=== PATIENT | male | born 1955 | race Caucasian/White ===

== ENCOUNTER 2016-05-04 | Outpatient (CLI) | payer OTHER | END 2016-05-04 11:08 | disposition EMS.NT | DX: R07.9 Chest pain, unspecified (principal) ==

== ENCOUNTER 2016-10-08 00:54 | Outpatient (CLI) | payer OTHER | END 2016-10-08 00:55 | disposition critical access hospital (66) | LOC: EMS 00:54 | PROVIDERS: ATTEND Surgery | DX: R07.9 Chest pain, unspecified (principal) | CPT/HCPCS: A0425; A0427 ==

== ENCOUNTER 2016-10-08 01:35 | Emergency (ER) | payer OTHER ==
[2016-10-08] MEDS ORDERED: ASPIRIN CHEW 81 MG TABLET PO STA (01:50)
[2016-10-08 01:54] LABS: BASOPHILS # (AUTO) 0.1 10^3/uL (0.0-0.1); BASOPHILS % (AUTO) 0.8 %; EOSINOPHILS # (AUTO) 0.1 10^3/uL (0.0-0.7); EOSINOPHILS % (AUTO) 0.6 %; HGB - HEMOGLOBIN 15.4 g/dL (14.0-18.0); LYMPHOCYTES # (AUTO) 2.2 10^3/uL (1.5-3.5); LYMPHOCYTES % (AUTO) 17.3 %; MEAN CORPUSCULAR HEMOGLOBIN 30.4 pg (27.0-31.0); MEAN CORPUSCULAR HGB CONC 34.2 g/dL (32.0-36.0); MEAN CORPUSCULAR VOLUME 88.9 fL (80.0-94.0); MONOCYTES # (AUTO) 1.1 10^3/uL (0.0-1.0); MONOCYTES % (AUTO) 8.7 %; NEUTROPHILS # (AUTO) 9.4 10^3/uL (1.5-6.6); NEUTROPHILS % (AUTO) 72.6 %; RED BLOOD COUNT 5.06 10^6/uL (4.70-6.10); RED CELL DISTRIBUTION WIDTH 13.9 % (12.0-15.0)
[2016-10-08] MEDS ORDERED: ASPIRIN CHEW 81 MG TABLET ONE (01:54)
--- NOTE | 2016-10-08 02:01 | XRAY Preliminary Report ---
Exam: XR Chest 1 View IMPRESSION: 1. Borderline cardiomegaly with mild pulmonary vascular congestion. [facility] SITE ID: [id number]
--- NOTE | 2016-10-08 02:03 | XRAY Report ---
EXAM: CHEST RADIOGRAPHY EXAM DATE: 10/08/2016 01:53 AM. CLINICAL HISTORY: Chest pain. COMPARISON: 02/13/2015. TECHNIQUE: 1 view. FINDINGS: Lungs/Pleura: Mild pulmonary vascular congestion. No alveolar consolidation or pleural effusion. No p neumothorax. Mediastinum: Borderline cardiomegaly. Tortuous atherosclerotic aorta. Other: None. IMPRESSION: 1. Borderline cardiomegaly with mild pulmonary vascular congestion. [facility] Referring Provider Line: [phone] SITE ID: [id number]
[2016-10-08 02:05] LABS: ALBUMIN/GLOBULIN RATIO 1.1 (1.0-2.2); BILIRUBIN,TOTAL 0.5 mg/dL (0.2-1.0); CREATININE 1.1 mg/dL (0.6-1.2); POTASSIUM 3.7 mmol/L (3.5-5.0)
[2016-10-08] MEDS ORDERED: NITROGLYCERIN 2% PASTE TOP STA (02:16)
[2016-10-08] MEDS ORDERED: ENOXAPARIN 60 MG/0.6 ML SYRINGE SUBQ STA (02:16)
[2016-10-08] MEDS ORDERED: NITROGLYCERIN 2% PASTE TOP ONE (02:21)
[2016-10-08] MEDS ORDERED: ENOXAPARIN 80 MG/0.8 ML SYRINGE SUBQ ONE (02:25)
[2016-10-08 02:35] LABS: PT - PROTHROMBIN TIME 11.8 secs (9.9-12.6)
[2016-10-08 02:41] LABS: D-DIMER 738.7 ng/mL (200.0-255.0)
[2016-10-08] MEDS ORDERED: SODIUM CHLORIDE 0.9% 1,000 ML IV ONE (02:41)
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
[2016-10-08 02:48] LABS: PARTIAL THROMBOPLASTIN TIME 29.5 secs (24.9-33.3)
[2016-10-08] MEDS ORDERED: CLOPIDOGREL 300 MG TABLET PO STA (03:20)
[2016-10-08] MEDS ORDERED: CLOPIDOGREL 300 MG TABLET PO ONE (03:21)
[2016-10-08 05:17] VITALS: BP 141/81
== END 2016-10-08 05:15 | disposition short-term general hospital (02) ==
LOC: EDUNIT# → ED 01:35
DX: I21.4 Non-ST elevation (NSTEMI) myocardial infarction (principal); R94.31 Abnormal electrocardiogram [ECG] [EKG]; I69.354 Hemiplegia and hemiparesis following cerebral infarction affecting left non-dominant side; E78.5 Hyperlipidemia, unspecified; F17.290 Nicotine dependence, other tobacco product, uncomplicated; Z82.49 Family history of ischemic heart disease and other diseases of the circulatory system; I71.4 Abdominal aortic aneurysm, without rupture; K44.9 Diaphragmatic hernia without obstruction or gangrene; Z79.82 Long term (current) use of aspirin
CPT/HCPCS: 36415; 71010; 80053; 83690; 83880; 84484; 85025; 85379; 85610; 85730; 93005; 96372; 99285; A9270; J1650; 99284

== ENCOUNTER 2016-10-08 05:14 | Outpatient (CLI) | payer OTHER | END 2016-10-08 05:15 | disposition short-term general hospital (02) | LOC: EMS 05:14 | PROVIDERS: ATTEND Surgery | DX: R07.9 Chest pain, unspecified (principal) | CPT/HCPCS: A0170; A0425; A0426 ==

== ENCOUNTER 2017-03-25 00:39 | Outpatient (CLI) | payer OTHER | END 2017-03-25 00:40 | disposition critical access hospital (66) | LOC: EMS 00:39 | PROVIDERS: ATTEND Surgery | DX: R42 Dizziness and giddiness (principal); R47.81 Slurred speech; R41.0 Disorientation, unspecified; R11.0 Nausea | CPT/HCPCS: A0425; A0427 ==

== ENCOUNTER 2017-03-25 01:17 | Inpatient (IN) | payer OTHER ==
--- NOTE | 2017-03-25 01:50 | CT Report ---
EXAM: CT HEAD EXAM DATE: 03/25/2017 01:44 AM. CLINICAL HISTORY: Dizziness and worsening weakness. COMPARISON: None. TECHNIQUE: Multiaxial CT images were obtained from the foramen magnum to the vertex. Reformats: Coron al. IV contrast: None. In accordance with CT protocol optimization, one or more of the following dose reduction techniques w ere utilized for this exam: automated exposure control, adjustment of mA and/or KV based on patient s ize, or use of iterative reconstructive technique. FINDINGS: Parenchyma: No intraparenchymal hemorrhage. No evidence of mass, midline shift, or CT findings of inf arction. Rojas-white differentiation is distinct. Extraaxial Spaces: Normal for age. No subdural or epidural collections identified. Ventricles: Normal in size and position. Sinuses and Orbits: Imaged paranasal sinuses, orbits, and mastoids show no significant abnormality. Bones: No evidence of fracture or calvarial defect. Other: None. IMPRESSION: No acute or focal intracranial abnormality. [facility] The above findings were discussed with Dr. Cruz by Dr. Warren Mak at 01:48 hrs on 03/25/17. Referring Provider Line: [phone] SITE ID: [id number]
[2017-03-25 02:19] LABS: BASOPHILS # (AUTO) 0.1 10^3/uL (0.0-0.1); BASOPHILS % (AUTO) 0.8 %; EOSINOPHILS # (AUTO) 0.1 10^3/uL (0.0-0.7); EOSINOPHILS % (AUTO) 0.9 %; HGB - HEMOGLOBIN 13.4 g/dL (14.0-18.0); LYMPHOCYTES # (AUTO) 3.1 10^3/uL (1.5-3.5); LYMPHOCYTES % (AUTO) 23.6 %; MEAN CORPUSCULAR HEMOGLOBIN 29.8 pg (27.0-31.0); MEAN CORPUSCULAR HGB CONC 34.5 g/dL (32.0-36.0); MEAN CORPUSCULAR VOLUME 86.5 fL (80.0-94.0); MONOCYTES # (AUTO) 1.2 10^3/uL (0.0-1.0); NEUTROPHILS # (AUTO) 8.7 10^3/uL (1.5-6.6); NEUTROPHILS % (AUTO) 65.7 %; PLT - PLATELET COUNT 166 10^3/uL (130-450); RED BLOOD COUNT 4.49 10^6/uL (4.70-6.10); RED CELL DISTRIBUTION WIDTH 15.1 % (12.0-15.0); WHITE BLOOD COUNT 13.2 x10^3/uL (4.8-10.8)
[2017-03-25 02:21] LABS: PT - PROTHROMBIN TIME 11.6 secs (9.9-12.6)
[2017-03-25 02:25] LABS: ALBUMIN 3.5 g/dL (3.2-5.5); ALBUMIN/GLOBULIN RATIO 0.9 (1.0-2.2); ALKALINE PHOSPHATASE 121 IU/L (42-121); ALT ALANINE AMINOTRANSFERASE 16 IU/L (10-60); AST ASPARTATE AMINOTRANSFERASE 14 IU/L (10-42); BILIRUBIN,TOTAL 0.4 mg/dL (0.2-1.0); BUN - BLOOD UREA NITROGEN 41 mg/dL (6-20); CARBON DIOXIDE - CO2 21 mmol/L (21-32); CHLORIDE 104 mmol/L (101-111); CREATININE 1.3 mg/dL (0.6-1.2); GFR - MDRD 56 (>89); GLUCOSE 105 mg/dL (70-100); LIPASE 23 U/L (22-51); SODIUM 134 mmol/L (135-145); TOTAL PROTEIN 7.2 g/dL (6.7-8.2)
[2017-03-25] MEDS ORDERED: SODIUM CHLORIDE 0.9% 1,000 ML IV ONE (02:26)
[2017-03-25] MEDS ORDERED: MECLIZINE 12.5 MG TABLET PO STA (02:26)
[2017-03-25] MEDS ORDERED: CARBIDOPA/LEVODOPA 25 MG/100 MG TABLET PO STA (02:44)
[2017-03-25] MEDS ORDERED: rOPINIRole 0.25 MG TABLET PO STA (03:41)
--- NOTE | 2017-03-25 03:57 | ED Physician Documentation ---
History of Present Illness - Stated complaint Stated Complaint: POSS STROKE - Chief complaint Chief Complaint: Neuro - History obtained from History obtained from: Patient, EMS - History of Present Illness Timing: Today, How many hours ago (4.5) - Additonal information Additional information: Patient is a 61 year old male with a history of previous NH, stroke with left sided parasthesias who is presenting to the emergency department for dizziness. Patient states that earlier this evening when patient got up he felt like the room was spinning. patient states that he thought he might be having a stroke so he called ems. Upon initial evaluation in the emergency department patient had no focal neurological deficits and his dizziness has improved. Patient's main complaint was that his restless leg was acting up and he could not get it under control. Review of Systems Constitutional: denies: Fever, Chills Eyes: denies: Decreased vision, Photophobia Ears: denies: Ear pain Nose: reports: Reviewed and negative Cardiac: denies: Chest pain / pressure, Palpitations, Pedal edema, Calf pain Respiratory: denies: Dyspnea, Cough, Wheezing GI: denies: Nausea, Vomiting : reports: Reviewed and negative Skin: denies: Rash, Lesions Neurologic: reports: Other (vertigo) PD PAST MEDICAL HISTORY - Past Medical History Past Medical History: Yes Cardiovascular: Angina, [place] Respiratory: COPD Neuro: CVA, TIA Endocrine/Autoimmune: None GI: None : None HEENT: Other Psych: Post traumatic stress disorder Musculoskeletal: None Derm: None - Past Surgical History Past Surgical History: Yes Cardiovascular: CABG, Coronary stent - Present Medications Home Medications: Ambulatory Orders Medication Instructions Recorded Confirmed Nitroglycerin 0.4 tab PO PRN PRN 02/13/15 10/08/16 Aspirin 1 tab PO DAILY 10/08/16 03/25/17 Atorvastatin Calcium 80 mg PO QPM 03/25/17 03/25/17 Carvedilol [Coreg] 6.25 mg PO BID 03/25/17 03/25/17 Clopidogrel [Plavix] 75 mg PO DAILY 03/25/17 03/25/17 Lisinopril 5 mg PO DAILY 03/25/17 03/25/17 Losartan Potassium 50 mg PO DAILY 03/25/17 03/25/17 Nortriptyline HCl 10 mg PO QPM 03/25/17 03/25/17 Spironolactone 1 tab PO DAILY 03/25/17 03/25/17 Tamsulosin HCl [Flomax] 1 cap PO DAILY 03/25/17 03/25/17 - Allergies Allergies/Adverse Reactions: Allergies Allergy/AdvReac Type Severity Reaction Status Date / Time Ibrotew-Ccr-Lrd Reductase Allergy Unknown Verified 03/25/17 01:35 Inhibitor habenero Allergy Unknown Uncoded 03/25/17 06:37 nicotine patch Allergy Unknown Uncoded 03/25/17 06:37 - Social History Does the pt smoke?: Yes Smoking Status: Current every day smoker Does the pt drink ETOH?: Yes Does the pt have substance abuse?: No - Immunizations Immunizations are current?: Yes - POLST Patient has POLST: No PD ED PE NORMAL - Vitals Vital signs reviewed: Yes - General General: Alert and oriented X 3 - HEENT HEENT: Atraumatic, PERRL, Pharynx benign - Neck Neck: No JVD - Cardiac Cardiac: RRR, No murmur - Respiratory Respiratory: No respiratory distress, Clear bilaterally - Abdomen Abdomen: Soft, Non tender, Non distended - Derm Derm: Normal color, Warm and dry, No rash - Neuro Neuro: Alert and oriented X 3, rn intern 2-12 intact, No motor deficit, Normal speech - Psych Psych: Normal mood PD ED PE EXPANDED - General General: Alert - HEENT HEENT: Dry mucous membranes - Eyes Eyes: Other (nystagmus with movement and peripheral gaze) - Neuro Neuro: Other (residual decreased senastion of left upper and lower extremity unchanged from baseline, ataxic with ambulation) Results - Vitals Vitals: Vital Signs - 24 hr 03/25/17 03/25/17 03/25/17 01:17 02:35 03:30 Temperature 36.7 C Heart Rate 80 91 87 Respiratory 21 24 24 Rate Blood Pressure 158/82 H 151/91 H 151/91 H O2 Saturation 100 99 97 03/25/17 03/25/17 03:58 04:27 Temperature 36.2 C L Heart Rate 85 70 Respiratory 24 16 Rate Blood Pressure 152/97 H 164/104 H O2 Saturation 100 100 Oxygen O2 Source Room air - EKG (time done) 0153 Rate: Rate (enter#) (89) Rhythm: NSR [place]lew: LAD Intervals: Prolonged PA, Prolonged QT Ischemia: Q waves Compare to prior EKG: Changed from prior EKG - Labs Labs: Laboratory Tests 03/25/17 03/25/17 03/25/17 02:03 02:03 02:03 WBC 13.2 H RBC 4.49 L Hgb 13.4 L Hct 38.8 L MCV 86.5 MCH 29.8 MCHC 34.5 RDW 15.1 H Plt Count 166 MPV 8.0 Neut # 8.7 H Lymph # 3.1 [place] # 1.2 H Eos # 0.1 Baso # 0.1 Absolute Nucleated RBC 0.00 Nucleated RBC % 0.0 PT 11.6 INR 1.0 APTT 28.9 Sodium 134 L Potassium 4.3 Chloride 104 Carbon Dioxide 21 Anion Gap 9.0 BUN 41 H Creatinine 1.3 H Estimated GFR (MDRD) 56 L Glucose 105 H Calcium 9.0 Total Bilirubin 0.4 AST 14 ALT 16 Alkaline Phosphatase 121 Troponin I Total Protein 7.2 Albumin 3.5 Globulin 3.7 Albumin/Globulin Ratio 0.9 L Lipase 23 TSH Ethyl Alcohol < 5.0 03/25/17 03/25/17 02:03 02:03 WBC RBC Hgb Hct MCV MCH MCHC RDW Plt Count MPV Neut # Lymph # [place] # Eos # Baso # Absolute Nucleated RBC Nucleated RBC % PT INR APTT Sodium Potassium Chloride Carbon Dioxide Anion Gap BUN Creatinine Estimated GFR (MDRD) Glucose Calcium Total Bilirubin AST ALT Alkaline Phosphatase Troponin I < 0.04 Total Protein Albumin Globulin Albumin/Globulin Ratio Lipase TSH 1.99 Ethyl Alcohol - Rads (name of study) ct head Radiology: Final report received (no acute disease process) PD MEDICAL DECISION MAKING - ED course Complexity details: reviewed old records, reviewed results, re-evaluated patient , considered differential, d/w patient, d/w telecommunications consultant ED course: Patient was seen and examined at bedside. CT was performed but showed no acute abnormalities. IV access was gained and labs were drawn. patient's diagnostics were within normal limits. When a trial of ambulation was performed patient was ataxic. Due to the worry of posterior stroke patient was placed in observation for mri and further evaluation and care. Departure - Departure Disposition: ED Place in Observation Clinical Impression: Ataxia Condition: Good Discharge Date/Time: 03/25/17 05:03
[2017-03-25] MEDS ORDERED: HYDROcod/ACETAM 5/325 MG TABLET PO PRN (04:29)
[2017-03-25] MEDS ORDERED: SODIUM CHLORIDE FLUSH 0.9% 10 ML SYRINGE IVP PRN (04:29)
[2017-03-25] MEDS ORDERED: ONDANSETRON ODT 4 MG TABLET TL PRN (04:29)
[2017-03-25] MEDS ORDERED: ONDANSETRON 4 MG/2 ML VIAL IVP PRN (04:29)
[2017-03-25] MEDS ORDERED: ACETAMINOPHEN 325 MG TABLET PO PRN (04:29)
--- NOTE | 2017-03-25 04:49 | HISTORY & PHYSICAL EXAMINATION ---
Chief Complaint - Chief Complaint Chief Complaint: new onset of dizziness at ~9 pm History of Present Illness - Admitted From Admitted From:: Emergency Room - History Obtained From Records Reviewed: [facility] History obtained from: patient, Dr. Hernandez and EMR Exam Limitations: none - History of Present Illness HPI Comment/Other: He has a known history of stroke and TIAs. He has seen here before in our ER for transient weakness. He has a residual left body weakness from the old stroke. He sometimes doesn't take his meds but he has been compliant since his last ER visit. At around 9 pm he began to have vertigo and felt like he couldn' t walk. No vision changes. No focal weakness that was new. No speech problems. He took 2 ASA and waited. It didn't go away so he finally called 911 and came to the ER about 3 hours later. In the ER he has new ataxia and can't stand up to walk. He feels this is not going away. The ER MD tried to send him home with outpt workup but he can't walk because of the ataxia that is new. CT of the head is without changes and does not have old scarring from previous CVA present. 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 he helps take care of her) Social History Notes: He has lived all over because of the [place]. Born in [place] He is not service connected. smokes cigars and cigarettes. alcohol use is about twice a year without a hx of abuse. twice in the past to the same woman. 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 No history of recreational substance abuse. - Substance History Use: Uses substance without health or social issues: Tobacco, Alcohol Abuse: Recurrent use of substance despite neg consequences: NONE Dependence: Experiences withdrawal or developed tolerances: NONE Tobacco Details: Cigarettes, Other (cigars) - POLST Patient has POLST: No POLST Status: Full Code Meds/Allgy - Home Medications Home Medications: Ambulatory Orders Medication Instructions Recorded Confirmed Aspirin 81 mg PO DAILY 10/08/16 03/25/17 Aspirin EC [Ecotrin] 325 mg PO DAILY tablet 03/25/17 Atorvastatin Calcium 80 mg PO QPM 03/25/17 03/25/17 Carbidopa/Levodopa 0 each PO QPM PRN 03/25/17 03/25/17 [Carbidopa-Levodopa 10-100 Tab] Carvedilol [Coreg] 9.375 mg PO BID 03/25/17 03/25/17 Clopidogrel [Plavix] 75 mg PO DAILY 03/25/17 03/25/17 Lisinopril 15 mg PO DAILY 03/25/17 03/25/17 Losartan Potassium 100 mg PO DAILY 03/25/17 03/25/17 Nortriptyline HCl 20 mg PO QPM 03/25/17 03/25/17 Spironolactone 25 mg PO DAILY 03/25/17 03/25/17 Tamsulosin HCl [Flomax] 0.4 mg PO DAILY 03/25/17 03/25/17 - Allergies Allergies/Adverse Reactions: Allergies Allergy/AdvReac Type Severity Reaction Status Date / Time Jgmbxiq-Ixo-Heh Reductase Allergy Unknown Verified 03/25/17 01:35 Inhibitor habenero Allergy Unknown Uncoded 03/25/17 06:37 nicotine patch Allergy Unknown Uncoded 03/25/17 06:37 Review of Systems - Constitutional Constitutional: denies: Fatigue, Fever, Chills, Malaise - Eyes Eyes: denies: Pain, Irritation, Amaurosis, Spots in vision, Field loss, Vision loss - Ears, Nose & Throat Ears, Nose & Throat: reports: Hearing loss, Vertigo. denies: Nosebleeds, Nasal obstruction, Nasal congestion, Sore throat, Hoarseness - Cardiovascular Cariovascular: reports: Irregular heart rate. denies: Palpitations, Chest pain , Lightheadedness, Syncope, Exertional dyspnea - Respiratory Respiratory: denies: Cough, Sputum production, Wheezing, Hemoptysis, Orthopnea, SOB at rest, SOB with exertion - Gastrointestinal Gastrointestinal: denies: Abdominal pain, Abdominal distention, Change in bowel habits - Genitourinary Genitourinary: reports: Nocturia. denies: Dysuria, Frequency, Urgency, Hematuria - Musculoskeletal Musculoskeletal: reports: Muscle pain, Back pain. denies: Muscle aches, Stiffness, Limited range of motion, Muscle weakness, Gout - Integumentary Integumentary: denies: Rash, Pruritis, Lesions - Neurological Neurological: reports: Dizziness, Pre-existing deficit, Abnormal gait. denies: General weakness, Focal weakness, Headache - Psychiatric Psychiatric: reports: Depression, Anxiety - Endocrine Endocrine: denies: Polyuria, Polydypsia - Hematologic/Lymphatic Hematologic/Lymphatic: denies: Anemia, Bruising Exam - Vital Signs Reviewed Vital Signs: Yes Vital Signs: Vital Signs x48h Temp Pulse Resp BP Pulse Ox 03/25/17 04:27 36.2 C L 70 16 164/104 H 100 03/25/17 03:58 85 24 152/97 H 100 03/25/17 03:30 87 24 151/91 H 97 03/25/17 02:35 91 24 151/91 H 99 03/25/17 01:17 36.7 C 80 21 158/82 H 100 - Physical Exam General Appearance: positive: No acute distress, Alert, Other (slender middle aged white male with balding and a guzman/mustache.) Eyes Bilateral: positive: PERRL, Other (wearing glasses) ENT: positive: Pharynx nml Neck: positive: No JVD. negative: Lymphadenopathy (R), Lymphadenopathy (L), Stiff neck, Carotid bruit Respiratory: positive: Chest non-tender. negative: Wheezes, Rales, Rhonchi Cardiovascular: positive: Regular rate & rhythm, Systolic murmur. negative: Gallop/S4, Friction rub Peripheral Pulses: positive: 1+ Abdomen: positive: Non-tender, No organomegaly, Nml bowel sounds, No distention Skin: positive: Color nml, No rash, Warm, Dry Extremities: positive: Non-tender, Full ROM, No pedal edema Neurologic/Psychiatric: positive: Oriented x3, CN's nml (2-12) (slight speech hesitation, slight loss of nasolabial fold), Weakness (really subtle on left hand and leg incomparison to right). negative: Motor nml (ataxia is present with gait, imbalance. finger to nose slow but done, no tremor), Facial droop, Slurred/abnml speech, Depressed mood/affect Conclusion/Plan - Problem List (1) Ataxia Conclusion/Plan: in a patient with hx of CVA and TIA. already on maximal medical therapy. BP stable. Plan: OBV stay CTA of brain and neck MRI is not available until Sunday PT evval and Tx continue his ASA, plavix, statin. (2) HTN (hypertension), benign Conclusion/Plan: not at goal but in the face of possible stroke goal is to lower only by 10% in the first 24 hours. will resume his ususal BP meds but avoid overtreating and allow permissive hypertension. (3) CKD (chronic kidney disease) stage 3, GFR 30-59 ml/min Conclusion/Plan: to aoivd worsening his renal failure, will give one liter of D5 with 1 amp of bicarb before the CTA of head and neck. - Lab Results Fish Bones: 03/25/17 02:03 03/25/17 02:03 - Diagnostic Imaging Results Diagnostic Imaging Results: positive: Final report reviewed Diagnostic Imaging Results Comments: CT of head without acute changes. No bleed,. - EKG Results EKG Interpreted Independently: No EKG Comparison: Unchanged from prior EKG Core Measures - Anticipated LOS I expect patient to be DC'd or transferred within 96 hours.: Yes - DVT/VTE - Prophylaxis VTE/DVT Device ordered at admit?: No Not Ordered - Low Risk: Very low risk
[2017-03-25] MEDS ORDERED: SODIUM BICARBONATE 100 MEQ in DEXTROSE 5% 1,000 ML IV SCH ×2 (05:00→08:00)
[2017-03-25] MEDS ORDERED: IOPAMIDOL-300 100 ML VIAL ONE (08:56)
[2017-03-25] MEDS ORDERED: LOSARTAN 50 MG TABLET PO SCH ×2 (09:00)
[2017-03-25] MEDS ORDERED: LISINOPRIL 5 MG TABLET PO SCH (09:00)
[2017-03-25] MEDS ORDERED: SPIRONOLACTONE 25 MG TABLET PO SCH (09:00)
[2017-03-25] MEDS ORDERED: ASPIRIN CHEW 81 MG TABLET PO SCH (09:00)
[2017-03-25] MEDS ORDERED: CARVEDILOL 3.125 MG TABLET PO SCH (09:00)
[2017-03-25] MEDS ORDERED: CLOPIDOGREL 75 MG TABLET PO SCH (09:00)
[2017-03-25] MEDS ORDERED: TAMSULOSIN 0.4 MG CAPSULE PO SCH (09:00)
[2017-03-25] MEDS ORDERED: POLYETHYLENE GLYCOL 3350 17 GM PACKET PO SCH (09:00)
[2017-03-25] MEDS: SODIUM CHLORIDE FLUSH 0.9% 10 ML SYRINGE IVP SCH ×3 (10:05→20:48)
[2017-03-25] MEDS ORDERED: IOPAMIDOL-300 100 ML VIAL IVP ONE (10:40)
[2017-03-25] MEDS ORDERED: ASPIRIN EC 325 MG TABLET PO SCH (11:00)
--- NOTE | 2017-03-25 15:44 | CT Report ---
EXAM: CT ANGIOGRAM HEAD AND NECK. CT SCAN HEAD WITHOUT AND WITH CONTRAST. EXAM DATE:03/25/2017 10:41 AM. CLINICAL HISTORY:New gait ataxia. COMPARISON:[facility]: CT angiogram head and neck 07/18/2015, CT angiogram of the chest abdomen pelvis 10/19/2016, MRI brain 07/19/2015. . TECHNIQUE: Routine axial helical CTA imaging was performed from the aortic arch through the [place] (per technologist, CT images acquired through the mid lateral ventricles instead of vertex pe r protocol). Routine axial CT imaging of the head was performed prior to and following contrast admin istration. Reconstructions: Routine multiplanar 3D MIP reconstructions. IV contrast: 80 cc Isovue 300 . NASCET Criteria are used for stenosis measurements. In accordance with CT protocol optimization, one or more of the following dose reduction techniques w ere utilized for this exam: automated exposure control, adjustment of mA and/or KV based on patient s ize, or use of iterative reconstructive technique. FINDINGS: Non Contrast Head: There is no mass, mass effect, midline shift or abnormal extraaxial fluid collection. Size and confi guration of the ventricles appear normal. There is no intracranial hemorrhage. Rojas white matter differentiation is maintained. Focal hypodensities in the subcortical white matter of bilateral frontal and parietal lobes may represent chronic microvascular angiopathy and/or chroni c lacunar type infarcts. Linear focal hypodensity in the left cerebellum (image 8 series 3) likely re present left cerebellar infarct, age indeterminate. Calvarium and skull base appear intact and normal. Orbits and extracranial soft tissue appear unremarkable. Post contrast CT Head: No abnormal enhancement. Rojas white matter differentiation appear preserved. Dural venous sinus and deep cerebral veins appear normal. CTA HEAD: Note that CTA of the head obtained through the basal ganglia, and distal QUINN and most distal MCAs are incompletely visualized. Anterior Circulation: The internal carotid arteries (ICA), visualized middle cerebral arteries (MCA), and visualized anterior cerebral arteries (QUINN) are patent bilaterally. The anterior communicating a rtery (A-COM) appears patent. No aneurysms, stenoses, or anatomic anomalies evident. Posterior Circulation: Posterior cerebral arteries, basilar artery and superior cerebellar arteries a ppear patent. The left vertebral artery appear patent with minimal nonstenotic atherosclerotic calcif ication of the distal V4 segment. Probable severe stenosis and/or atherosclerotic occlusion of the mid V4 segment of the right vertebra l artery with distal reconstitution either forward flow or retrograde collateral flow. The appearance appears stable when compared to prior CT angiogram of the head and neck 07/18/2015. CTA NECK: Right Carotid: Common carotid artery origin appear patent. Diffuse atherosclerotic plaque of the righ t common carotid artery without significant stenosis. Focal atherosclerotic calcifications of the rig ht carotid bifurcation without significant stenosis. Focal atherosclerotic calcification in the mid r ight internal carotid artery without significant stenosis. Left Carotid: Origin of the left common carotid artery not visualized. Visualized left common carotid artery appear patent to the bifurcation. Atherosclerotic calcification of the left carotid bifurcati on with up to 34% stenosis of the origin of the left ICA by NASCET criteria. There is no evidence for tandem stenosis or dissection. Vertebrals: Right vertebral: Hypoplastic right vertebral artery with or without diffuse atherosclerotic plaquing. There is approximately 50% focal stenosis at the origin of the right vertebral artery. Multiple segm ents of less than 50% atherosclerotic narrowing of the V2 segment of the right vertebral artery at C5 -C6 and C4-C5. Focal less than 50% narrowing of the V3 segment of the right vertebral artery at C1 wh ich appears similar to prior CTA 07/18/2015. Left vertebral artery: Stable focal 50% stenosis at the origin of the dominant left vertebral artery. Focal less than 50% stenosis of the V1 segment of the left vertebral artery at C6-C7. No significant stenosis of the V2 or V3 segment of the left vertebral artery. There is a vascular stent within the visualized left subclavian artery. The proximal landing zone of the stent is not visualized on the CT examination. Thrombus within excluded saccular aneurysm of the proximal left subclavian artery, posterolateral to the stent is demonstrated. The stent appeared to s garg a fusiform dilation of the proximal left subclavian artery, at the left vertebral artery origin. There is focal infundibular-like dilation at the origin of the left vertebral artery. Origin of the right subclavian artery appear patent. Other: The visualized lungs are clear. Alignment of the cervical spine within normal limits. No suspi cious lytic or sclerotic osseous lesion. Incidental right paraspinous cervical subcutaneous lipoma. IMPRESSION: CT Scan Head: 1. No intracranial hemorrhage, midline shift or hydrocephalus. 2. Small foci of hypodensities seen in the subcortical right frontal lobe and left parietal lobe, cou ld represent lacunar type infarcts versus chronic microvascular angiopathy. These were not present on MRI brain 07/19/2015. 3. Linear 9 mm hypodensity in the left cerebellum, age indeterminate. This is not present on previous CT of the head 2015 [place]. Consider MRI of the brain with diffusion-weighted sequence t o evaluate for recent infarction. 4. There are foci of hypodensities in the occipital poles bilaterally (axial image 14 series 3), not seen on previous CT 03/25/2017 at 0140 hrs., could represent evolving infarcts in bilateral [employer] [place] tories. CT Angiogram Neck: 1. Atherosclerotic calcification of the right carotid bifurcation without significant stenosis by VERA CET criteria. No evidence for dissection. 2. Atherosclerotic calcification of the left carotid bifurcation with up to 34% focal stenosis of the left ICA origin by NASCET criteria. No evidence for tandem stenosis or dissection. 3. Stable chronic 50% focal stenosis at the origin of the right vertebral artery. 4. Multifocal mild less than 50% stenoses of the V2 segment of the right vertebral artery at C5-C6 an d C4-C5 appear compared to prior CT angiogram 07/18/2015. Focal less than 50% stenosis of the V3 segm ent of the right vertebral artery at C1 and appear stable compared to 07/18/2015. 5. Vascular stent within the visualized left subclavian artery is partially visualized with its proxi mal landing zone not included in this examination. 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 Portion of the fusiform aneurysm excluded by the stent is thrombosed. 6. There is new infundibular-like fusiform dilation of proximal left subclavian artery at the origin of the left vertebral artery measuring up to 1.6 cm. 7. Stable focal 50% stenosis of the origin of the left vertebral artery. No significant left vertebra l artery stenosis otherwise. 8. No evidence to suggest dissection. CT Angiogram Head: 1. CTA of the head obtained only partially, through the basal ganglia. Distal QUINN and MCA are incompl etely visualized. 2. No significant stenosis of the visualized anterior circulation. No evidence for aneurysm. 3. Severe atherosclerotic stenosis of the distal nondominant right vertebral artery appears stable co mpared to prior CTA of the head and neck 07/18/2015 with distal reconstitution. The left vertebral ar natalie appear patent. Remainder of the posterior circulation appear unremarkable. RADIA The above findings were discussed with Dr. Anderson by Dr. Kadeem Farrar at 15:40 hrs on 03/25/17. Referring Provider Line: [phone] SITE ID: [id number]
--- NOTE | 2017-03-25 17:56 | Discharge Plan ---
Discharge Plan Disposition: 02 Transfer Acute Care Hosp Condition: Fair Diet: Cardiac Activity Restrictions: Activity as Tolerated Shower Restrictions: No Driving Restrictions: Yes Assistance Devices: Walker Weight Bearing: Full Weight Additional Instructions or Follow Up instructions: Care to continue at [facility] under Neurology. No Smoking: If you smoke, Please STOP! Call for help.
--- NOTE | 2017-03-25 17:59 | DISCHARGE SUMMARY ---
"Discharge Summary Admit Date: 03/25/17 Discharge Date: 03/25/17 Discharging Provider: JARETT Smith Primary Care Provider: none Code Status: Attempt Resuscitation Condition at Discharge: Fair Discharge Disposition: 02 Transfer Acute Care Hosp Discharge Facility Name: [facility]rology - DIAGNOSES Admission Diagnoses: Ataxia, unspecified (R27.0) Personal history of transient ischemic attack (TIA), and cerebral infarction without residual deficits (Z86.73) Essential (primary) hypertension (I10) Chronic kidney disease, stage 3 (moderate) (N18.3) Discharge Diagnoses with Status of Each Condition: Ataxia, unspecified (R27.0) not resolved. Cerebral infarction, unspecified (I63.9) confirmed with CTA head and neck. [facility] notified and advised a transfer. Personal history of transient ischemic attack (TIA), and cerebral infarction without residual deficits (Z86.73) chronic, stable on left side. Essential (primary) hypertension (I10) chronic, ideally wanted patient to remain hypertensive during the acute phase of CVA. Chronic kidney disease, stage 3 (moderate) (N18.3) chronic, stable. IV bicarb was given as a pre-medication for contrast associated with CTA scan. - HPI History of Present Illness: Wilbur Black is a 61 year old white male with as past medical history of stroke, TIAs, CABG, CAD, TAVR in 10/2016, hypertension, chronic kidney disease and tobacco abuse. The patient was most recently in our ER for transient weakness and remains with residual left body weakness. He admits to being non-compliant in the past but since his last ER visit he has been taking his medications as prescribed. At around 9 pm he began to have vertigo and felt like he couldn't walk. He denies vision changes, focal weakness, or speech problems. He took 2 ASA and waited. It didn't go away so he finally called 911 and came ot the ER about 3 hours later. Once the patient was in the ER he has new ataxia and can't stand up to walk. He feels this is not going away. The ER MD intended to send him home with outpatient workup, but with his profound ataxia that is new, it was recommend one night of observation. CT of the head was negative for acute changes or ischemia, although it does show old scarring from previous NENA present. Patient will be admitted to Hospitalist service for telemetry monitoring and CTA of head and neck. - CONSULTS | PROCEDURES Consultations: Neurology via phone, Dr. Joanna Anthony MD. Procedures: none - HOSPITAL COURSE Hospital Course: Patient was originally admitted to observation leaning on the side of a likely TIA, but after patient seemed to be declining with worsening right sided weakness, blurred vision, aphasia, and decreased sensation, patient was changed to inpatient. Head and neck CTA results were called to Hospitalist, which indicated a confirmation of a CVA. Home antihypertensives were held to promote a higher blood pressure, statins were started, ASA, continued plavix and PT/OT was consulted. Other than the aphasia, patient has not deviated from his normal , baseline mental status. A call was made to Dr. Joanna Anthony, [facility] Neuro who recommended a transfer to [facility] for further Neurology care given the lack of MRI and echocardiogram available at [facility] during the holiday weekend. Patient has not displayed any problems with swallowing, although a swallow evaluation was ordered. Patient is awaiting a transfer to [facility] at the time of this note, and he is expected to be in stable condition at the time of transfer with no oxygen needs. Sister, who is POA is at the bedside. - ALLERGIES Allergies/Adverse Reactions: Allergies Allergy/AdvReac Type Severity Reaction Status Date / Time Nlctgkn-Nvd-Nup Reductase Allergy Unknown Verified 03/25/17 01:35 Inhibitor habenero Allergy Unknown Uncoded 03/25/17 06:37 nicotine patch Allergy Unknown Uncoded 03/25/17 06:37 - MEDICATIONS Home Medications: Ambulatory Orders Medication Instructions Recorded Confirmed Aspirin 81 mg PO DAILY 10/08/16 03/25/17 Aspirin EC [Ecotrin] 325 mg PO DAILY tablet 03/25/17 Atorvastatin Calcium 80 mg PO QPM 03/25/17 03/25/17 Carbidopa/Levodopa 0 each PO QPM PRN 03/25/17 03/25/17 [Carbidopa-Levodopa 10-100 Tab] Carvedilol [Coreg] 9.375 mg PO BID 03/25/17 03/25/17 Clopidogrel [Plavix] 75 mg PO DAILY 03/25/17 03/25/17 Lisinopril 15 mg PO DAILY 03/25/17 03/25/17 Losartan Potassium 100 mg PO DAILY 03/25/17 03/25/17 Nortriptyline HCl 20 mg PO QPM 03/25/17 03/25/17 Spironolactone 25 mg PO DAILY 03/25/17 03/25/17 Tamsulosin HCl [Flomax] 0.4 mg PO DAILY 03/25/17 03/25/17 - PHYSICAL EXAM AT DISCHARGE General Appearance: positive: No acute distress, Alert, Lethargic (becomes sleepy easily.) Eyes Bilateral: positive: Other. negative: Normal inspection ENT: positive: ENT inspection nml, Dry mucous membranes Neck: positive: Nml inspection, Thyroid nml, No JVD, Trachea midline Respiratory: positive: Chest non-tender, No respiratory distress, Rhonchi (mild bilateral lobe crackles.) Cardiovascular: positive: Regular rate & rhythm, No gallop, Systolic murmur, Decreased pulse(s) Peripheral Pulses: positive: 1+ Abdomen: positive: Non-tender, No organomegaly, Nml bowel sounds, No distention Back: positive: Nml inspection Skin: positive: Color nml, No rash, Warm, Dry Extremities: positive: Nml appearance, No pedal edema, Other (decreased sensation, loss of function on both upper and lower right extremities.) Neurologic/Psychiatric: positive: Oriented x3, Weakness, Sensory loss, Facial droop, Slurred/abnml speech, Depressed mood/affect Reflexes: Bicep (R): 0, Bicep (L): 1+ Physical Exam Other/Comments: Profound aphasia, frustration noted when speaking. Facial droop. - LABS Result Diagrams: 03/25/17 02:03 03/25/17 02:03 - DIAGNOSTIC IMAGING Diagnostic Imaging Results: Final report reviewed Diagnostic Imaging Results Comments: FINDINGS: Parenchyma: No intraparenchymal hemorrhage. No evidence of mass, midline shift, or CT findings of infarction. Rojas-white differentiation is distinct. Extraaxial Spaces: Normal for age. No subdural or epidural collections identified. Ventricles: Normal in size and position. Sinuses and Orbits: Imaged paranasal sinuses, orbits, and mastoids show no significant abnormality. Bones: No evidence of fracture or calvarial defect. Other: None. IMPRESSION: No acute or focal intracranial abnormality. CTA neck: FINDINGS: Non Contrast Head: There is no mass, mass effect, midline shift or abnormal extraaxial fluid collection. Size and configuration of the ventricles appear normal. There is no intracranial hemorrhage. Rojas white matter differentiation is maintained. Focal hypodensities in the subcortical white matter of bilateral frontal and parietal lobes may represent chronic microvascular angiopathy and/or chronic lacunar type infarcts. Linear focal hypodensity in the left cerebellum (image 8 series 3) likely represent left cerebellar infarct, age indeterminate. Calvarium and skull base appear intact and normal. Orbits and extracranial soft tissue appear unremarkable. Post contrast CT Head: No abnormal enhancement. Rojas white matter differentiation appear preserved. Dural venous sinus and deep cerebral veins appear normal. CTA HEAD: Note that CTA of the head obtained through the basal ganglia, and distal QUINN and most distal MCAs are incompletely visualized. Anterior Circulation: The internal carotid arteries (ICA), visualized middle cerebral arteries (MCA), and visualized anterior cerebral arteries (QUINN) are patent bilaterally. The anterior communicating artery (A-COM) appears patent. No aneurysms, stenoses, or anatomic anomalies evident. Posterior Circulation: Posterior cerebral arteries, basilar artery and superior cerebellar arteries appear patent. The left vertebral artery appear patent with minimal nonstenotic atherosclerotic calcification of the distal V4 segment. Probable severe stenosis and/or atherosclerotic occlusion of the mid V4 segment of the right vertebral artery with distal reconstitution either forward flow or retrograde collateral flow. The appearance appears stable when compared to prior CT angiogram of the head and neck 07/18/2015. CTA NECK: Right Carotid: Common carotid artery origin appear patent. Diffuse atherosclerotic plaque of the right common carotid artery without significant stenosis. Focal atherosclerotic calcifications of the right carotid bifurcation without significant stenosis. Focal atherosclerotic calcification in the mid right internal carotid artery without significant stenosis. Left Carotid: Origin of the left common carotid artery not visualized. Visualized left common carotid artery appear patent to the bifurcation. Atherosclerotic calcification of the left carotid bifurcation with up to 34% stenosis of the origin of the left ICA by NASCET criteria. There is no evidence for tandem stenosis or dissection. Vertebrals: Right vertebral: Hypoplastic right vertebral artery with or without diffuse atherosclerotic plaquing. There is approximately 50% focal stenosis at the origin of the right vertebral artery. Multiple segments of less than 50% atherosclerotic narrowing of the V2 segment of the right vertebral artery at C5- C6 and C4-C5. Focal less than 50% narrowing of the V3 segment of the right vertebral artery at C1 which appears similar to prior CTA 07/18/2015. Left vertebral artery: Stable focal 50% stenosis at the origin of the dominant left vertebral artery. Focal less than 50% stenosis of the V1 segment of the left vertebral artery at C6-C7. No significant stenosis of the V2 or V3 segment of the left vertebral artery. There is a vascular stent within the visualized left subclavian artery. The proximal landing zone of the stent is not visualized on the CT examination. Thrombus within excluded saccular aneurysm of the proximal left subclavian artery, posterolateral to the stent is demonstrated. The stent appeared to span a fusiform dilation of the proximal left subclavian artery, at the left vertebral artery origin. There is focal infundibular-like dilation at the origin of the left vertebral artery. Origin of the right subclavian artery appear patent. Other: The visualized lungs are clear. Alignment of the cervical spine within normal limits. No suspicious lytic or sclerotic osseous lesion. Incidental right paraspinous cervical subcutaneous lipoma. IMPRESSION: CT Scan Head: 1. No intracranial hemorrhage, midline shift or hydrocephalus. 2. Small foci of hypodensities seen in the subcortical right frontal lobe and left parietal lobe, could represent lacunar type infarcts versus chronic microvascular angiopathy. These were not present on MRI brain 07/19/2015. 3. Linear 9 mm hypodensity in the left cerebellum, age indeterminate. This is not present on previous CT of the head 2015 [place]. Consider MRI of the brain with diffusion-weighted sequence to evaluate for recent infarction. 4. 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 CTA head: FINDINGS: Non Contrast Head: There is no mass, mass effect, midline shift or abnormal extraaxial fluid collection. Size and configuration of the ventricles appear normal. There is no intracranial hemorrhage. Rojas white matter differentiation is maintained. Focal hypodensities in the subcortical white matter of bilateral frontal and parietal lobes may represent chronic microvascular angiopathy and/or chronic lacunar type infarcts. Linear focal hypodensity in the left cerebellum (image 8 series 3) likely represent left cerebellar infarct, age indeterminate. Calvarium and skull base appear intact and normal. Orbits and extracranial soft tissue appear unremarkable. Post contrast CT Head: No abnormal enhancement. Rojas white matter differentiation appear preserved. Dural venous sinus and deep cerebral veins appear normal. CTA HEAD: Note that CTA of the head obtained through the basal ganglia, and distal QUINN and most distal MCAs are incompletely visualized. Anterior Circulation: The internal carotid arteries (ICA), visualized middle cerebral arteries (MCA), and visualized anterior cerebral arteries (QUINN) are patent bilaterally. The anterior communicating artery (A-COM) appears patent. No aneurysms, stenoses, or anatomic anomalies evident. Posterior Circulation: Posterior cerebral arteries, basilar artery and superior cerebellar arteries appear patent. The left vertebral artery appear patent with minimal nonstenotic atherosclerotic calcification of the distal V4 segment. Probable severe stenosis and/or atherosclerotic occlusion of the mid V4 segment of the right vertebral artery with distal reconstitution either forward flow or retrograde collateral flow. The appearance appears stable when compared to prior CT angiogram of the head and neck 07/18/2015. CTA NECK: Right Carotid: Common carotid artery origin appear patent. Diffuse atherosclerotic plaque of the right common carotid artery without significant stenosis. Focal atherosclerotic calcifications of the right carotid bifurcation without significant stenosis. Focal atherosclerotic calcification in the mid right internal carotid artery without significant stenosis. Left Carotid: Origin of the left common carotid artery not visualized. Visualized left common carotid artery appear patent to the bifurcation. Atherosclerotic calcification of the left carotid bifurcation with up to 34% stenosis of the origin of the left ICA by NASCET criteria. There is no evidence for tandem stenosis or dissection. Vertebrals: Right vertebral: Hypoplastic right vertebral artery with or without diffuse atherosclerotic plaquing. There is approximately 50% focal stenosis at the origin of the right vertebral artery. Multiple segments of less than 50% atherosclerotic narrowing of the V2 segment of the right vertebral artery at C5- C6 and C4-C5. Focal less than 50% narrowing of the V3 segment of the right vertebral artery at C1 which appears similar to prior CTA 07/18/2015. Left vertebral artery: Stable focal 50% stenosis at the origin of the dominant left vertebral artery. Focal less than 50% stenosis of the V1 segment of the left vertebral artery at C6-C7. No significant stenosis of the V2 or V3 segment of the left vertebral artery. There is a vascular stent within the visualized left subclavian artery. The proximal landing zone of the stent is not visualized on the CT examination. Thrombus within excluded saccular aneurysm of the proximal left subclavian artery, posterolateral to the stent is demonstrated. The stent appeared to span a fusiform dilation of the proximal left subclavian artery, at the left vertebral artery origin. There is focal infundibular-like dilation at the origin of the left vertebral artery. Origin of the right subclavian artery appear patent. Other: The visualized lungs are clear. Alignment of the cervical spine within normal limits. No suspicious lytic or sclerotic osseous lesion. Incidental right paraspinous cervical subcutaneous lipoma. IMPRESSION: CT Scan Head: 1. No intracranial hemorrhage, midline shift or hydrocephalus. 2. Small foci of hypodensities seen in the subcortical right frontal lobe and left parietal lobe, could represent lacunar type infarcts versus chronic microvascular angiopathy. These were not present on MRI brain 07/19/2015. 3. Linear 9 mm hypodensity in the left cerebellum, age indeterminate. This is not present on previous CT of the head 2015 [place]. Consider MRI of the brain with diffusion-weighted sequence to evaluate for recent infarction. 4. 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 CT Angiogram Neck: 1. Atherosclerotic calcification of the right carotid bifurcation without significant stenosis by NASCET criteria. No evidence for dissection. 2. Atherosclerotic calcification of the left carotid bifurcation with up to 34% focal stenosis of the left ICA origin by NASCET criteria. No evidence for tandem stenosis or dissection. 3. Stable chronic 50% focal stenosis at the origin of the right vertebral artery. 4. Multifocal mild less than 50% stenoses of the V2 segment of the right vertebral artery at C5-C6 and C4-C5 appear compared to prior CT angiogram 2015. Focal less than 50% stenosis of the V3 segment of the right vertebral artery at C1 and appear stable compared to 07/18/2015. 5. Vascular stent within the visualized left subclavian artery is partially visualized with its proximal landing zone not included in this examination. 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 Portion of the fusiform aneurysm excluded by the stent is thrombosed. 6. There is new infundibular-like fusiform dilation of proximal left subclavian artery at the origin of the left vertebral artery measuring up to 1.6 cm. 7. Stable focal 50% stenosis of the origin of the left vertebral artery. No significant left vertebral artery stenosis otherwise. 8. No evidence to suggest dissection. CT Angiogram Head: 1. CTA of the head obtained only partially, through the basal ganglia. Distal QUINN and MCA are incompletely visualized. 2. No significant stenosis of the visualized anterior circulation. No evidence for aneurysm. 3. Severe atherosclerotic stenosis of the distal nondominant right vertebral artery appears stable compared to prior CTA of the head and neck 07/18/2015 with distal reconstitution. The left vertebral artery appear patent. Remainder of the posterior circulation appear unremarkable. - FOLLOW UP Follow Up: [facility]. - TIME SPENT Time Spent in Discharge (Minutes): 60"
[2017-03-25] MEDS ORDERED: CARBIDOPA/LEVODOPA 10 MG/100 MG TABLET PO PRN (19:16)
[2017-03-25] MEDS ORDERED: ATORVASTATIN 40 MG TABLET PO SCH (21:00)
[2017-03-25] MEDS ORDERED: NORTRIPTYLINE 10 MG CAPSULE PO SCH (21:00)
[2017-03-25 21:19] VITALS: BP 115/62
[2017-03-25] MEDS ORDERED: CARBIDOPA/LEVODOPA 10 MG/100 MG TABLET PO SCH (21:31)
== END 2017-03-25 22:05 | disposition short-term general hospital (02) | DRG 65 ==
LOC: EDUNIT# → ED 01:17 → OBS 04:29 → OBSVTOIN 10:44 → MS2 11:36
PROVIDERS: ADMIT Specialist; ATTEND Nurse Practitioner
DX: I63.439 Cerebral infarction due to embolism of unspecified posterior cerebral artery (principal); G81.91 Hemiplegia, unspecified affecting right dominant side; I69.954 Hemiplegia and hemiparesis following unspecified cerebrovascular disease affecting left non-dominant side; R26.0 Ataxic gait; R47.01 Aphasia; H53.8 Other visual disturbances; R29.810 Facial weakness; R20.9 Unspecified disturbances of skin sensation; I12.9 Hypertensive chronic kidney disease with stage 1 through stage 4 chronic kidney disease, or unspecified chronic kidney disease; N18.3 Chronic kidney disease, stage 3 (moderate); J44.9 Chronic obstructive pulmonary disease, unspecified; F43.10 Post-traumatic stress disorder, unspecified; G89.29 Other chronic pain; M71.38 Other bursal cyst, other site; F17.210 Nicotine dependence, cigarettes, uncomplicated; N40.1 Benign prostatic hyperplasia with lower urinary tract symptoms; R35.0 Frequency of micturition; R39.15 Urgency of urination; R35.1 Nocturia; Z79.82 Long term (current) use of aspirin; Z79.02 Long term (current) use of antithrombotics/antiplatelets; Z79.899 Other long term (current) drug therapy; I25.2 Old myocardial infarction; Z95.1 Presence of aortocoronary bypass graft; Z95.5 Presence of coronary angioplasty implant and graft; Z95.2 Presence of prosthetic heart valve; Z95.828 Presence of other vascular implants and grafts
CPT/HCPCS: 36415; 70450; 70496; 70498; 80053; 80320; 83690; 84443; 84484; 85025; 85610; 85730; 93005; 96360; 96361; 99284; 99285

== ENCOUNTER 2017-12-17 10:55 | Outpatient (CLI) | payer OTHER, MEDICAID | END 2017-12-17 10:56 | disposition short-term general hospital (02) | LOC: EMS 10:55 | PROVIDERS: ATTEND Surgery | DX: R07.9 Chest pain, unspecified (principal) | CPT/HCPCS: A0425; A0427 ==

== ENCOUNTER 2018-05-08 17:00 | Outpatient (CLI) | payer OTHER | END 2018-05-08 17:01 | disposition short-term general hospital (02) | LOC: EMS 17:00 | PROVIDERS: ATTEND Surgery | DX: R42 Dizziness and giddiness (principal) | CPT/HCPCS: A0425; A0427 ==

== ENCOUNTER 2019-03-08 05:11 | Outpatient (CLI) | payer MEDICAID, OTHER | END 2019-03-08 05:12 | disposition short-term general hospital (02) | LOC: EMS 05:11 | PROVIDERS: ATTEND Surgery | DX: R07.2 Precordial pain (principal); R68.84 Jaw pain; M79.602 Pain in left arm; M79.601 Pain in right arm; R03.0 Elevated blood-pressure reading, without diagnosis of hypertension | CPT/HCPCS: A0425; A0427 ==

== ENCOUNTER 2019-12-28 06:13 | Outpatient (CLI) | payer OTHER | END 2019-12-28 06:14 | disposition short-term general hospital (02) | LOC: EMS 06:13 | PROVIDERS: ATTEND Surgery | DX: R07.9 Chest pain, unspecified (principal) | CPT/HCPCS: A0425; A0427 ==

== ENCOUNTER 2020-04-10 22:20 | Outpatient (CLI) | payer OTHER | END 2020-04-10 22:21 | disposition short-term general hospital (02) | LOC: EMS 22:20 | PROVIDERS: ATTEND Surgery | DX: R07.9 Chest pain, unspecified (principal) | CPT/HCPCS: A0425; A0427 ==

== ENCOUNTER 2020-06-17 00:29 | Outpatient (CLI) | payer OTHER | END 2020-06-17 00:30 | disposition short-term general hospital (02) | LOC: EMS 00:29 | DX: R07.9 Chest pain, unspecified (principal); R06.00 Dyspnea, unspecified; R42 Dizziness and giddiness | CPT/HCPCS: A0425; A0427 ==

== ENCOUNTER 2020-08-20 04:07 | Outpatient (CLI) | payer OTHER | END 2020-08-20 04:08 | disposition critical access hospital (66) | LOC: EMS 04:07 | DX: I10 Essential (primary) hypertension (principal) | CPT/HCPCS: A0425; A0429 ==

== ENCOUNTER 2020-08-20 04:43 | Emergency (ER) | payer MEDICARE, OTHER ==
--- NOTE | 2020-08-20 05:02 | ED Physician Documentation ---
History of Present Illness - Stated complaint Stated Complaint: High BP/SOA - Chief complaint Chief Complaint: Cardiac - History obtained from History obtained from: Patient, EMS - Additonal information Additional information: Patient is brought to the emergency department by EMS after having a coughing fit at home and being found to have an elevated blood pressure reading. Medics state that they were called out for dyspnea and cough, but will be got there, patient denies dyspnea and states he stated he felt fine. They then took his blood pressure and found it to be in the 180s over 110s. Patient states that he had a coughing fit and that he thinks "the girls panicked". The patient has had some vocal cord nodules since being intubated for a cardiac procedure some months ago, and has had chronic stridor because of this. He states that none of this is new and it is all at baseline. He states he occasionally gets a coughing fit, but can usually recover fairly well. He had recovered by the time the medics got there and was not having any further symptoms at the time of their arrival. Patient denies chest pain. No nausea or vomiting. No fevers or chills. No feeling of general malaise. The patient states he is on blood pressure medication but has not taken it yet this morning. No other complaints at this time. Review of Systems Ten Systems: 10 systems reviewed and negative Constitutional: reports: Reviewed and negative Eyes: reports: Reviewed and negative Ears: reports: Reviewed and negative Nose: reports: Reviewed and negative Throat: reports: Reviewed and negative Cardiac: reports: Reviewed and negative Respiratory: reports: Reviewed and negative GI: reports: Reviewed and negative : reports: Reviewed and negative Skin: reports: Reviewed and negative Musculoskeletal: reports: Reviewed and negative Neurologic: reports: Reviewed and negative Psychiatric: reports: Reviewed and negative Endocrine: reports: Reviewed and negative Immunocompromised: reports: Reviewed and negative PD PAST MEDICAL HISTORY - Past Medical History Cardiovascular: [place], [place] Respiratory: COPD Endocrine/Autoimmune: None GI: None : Benign prostate hypertrophy HEENT: Other Psych: Post traumatic stress disorder Musculoskeletal: Chronic back pain (from L spine synovial cysts) Derm: None - Past Surgical History Past Surgical History: Yes Cardiovascular: CABG, Coronary stent, Valve replacement, Other (TAVR) - Present Medications Home Medications: Ambulatory Orders Medication Instructions Recorded Confirmed Aspirin 81 mg PO DAILY 10/08/16 03/25/17 Aspirin EC [Ecotrin] 325 mg PO DAILY tablet 03/25/17 Atorvastatin Calcium 80 mg PO QPM 03/25/17 03/25/17 Carbidopa/Levodopa 0 each PO QPM PRN 03/25/17 03/25/17 [Carbidopa-Levodopa 10-100 Tab] Carvedilol [Coreg] 9.375 mg PO BID 03/25/17 03/25/17 Clopidogrel [Plavix] 75 mg PO DAILY 03/25/17 03/25/17 Losartan Potassium 100 mg PO DAILY 03/25/17 03/25/17 Nortriptyline HCl 20 mg PO QPM 03/25/17 03/25/17 Spironolactone 25 mg PO DAILY 03/25/17 03/25/17 Tamsulosin HCl [Flomax] 0.4 mg PO DAILY 03/25/17 03/25/17 lisinopriL [Lisinopril] 15 mg PO DAILY 03/25/17 03/25/17 - Allergies Allergies/Adverse Reactions: Allergies Allergy/AdvReac Type Severity Reaction Status Date / Time Rwlsfgh-Fez-Mnz Reductase Allergy Unknown Verified 08/20/20 04:59 Inhibitor habenero Allergy Unknown Uncoded 08/20/20 04:59 nicotine patch Allergy Unknown Uncoded 08/20/20 04:59 - Social History Does the pt smoke?: Yes Smoking Status: Current every day smoker Does the pt drink ETOH?: Yes Does the pt have substance abuse?: No - Immunizations Immunizations are current?: Yes - POLST Patient has POLST: No POLST Status: Full Code PD ED PE NORMAL - Vitals Vital signs reviewed: Yes - General General: Alert and oriented X 3, No acute distress - HEENT HEENT: Atraumatic, PERRL, EOMI, Moist mucous membranes - Neck Neck: Supple, no meningeal sign - Cardiac Cardiac: RRR, No murmur - Respiratory Respiratory: No respiratory distress, Clear bilaterally, Other (Patient has somewhat laborious inspiration with raspy stridor, but speaks very easily.) - Abdomen Abdomen: Soft, Non tender, Non distended - Derm Derm: Normal color, Warm and dry, No rash - Extremities Extremities: No deformity, No edema - Neuro Neuro: Alert and oriented X 3, 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, Normal speech, Other (Grossly normal.) - Psych Psych: Normal mood, Normal affect Results - Vitals Vitals: Vital Signs - 24 hr 08/20/20 04:42 Temperature 36.2 C L Heart Rate 115 H Respiratory 16 Rate Blood Pressure 142/94 H O2 Saturation 98 Oxygen O2 Source [Without Activity] Room air O2 Source Room air - EKG (time done) 6690 Rate: Rate (enter#) (112) Rhythm: Sinus tachycardia [place]: Normal Intervals: Normal LA QRS: Normal Ischemia: Normal ST segments, Non specific changes Compare to prior EKG: Old EKG unavailable PD MEDICAL DECISION MAKING - ED course Complexity details: reviewed results, re-evaluated patient, considered differential, d/w patient ED course: The patient had no complaints whatsoever and did not feel there had been any symptoms worthy of concern at home, either. We had him take his morning medications here, including his antihypertensives. We have discussed home management of any further symptoms, as well as the usual indications for return. Departure - Departure Disposition: 01 Home, Self Care Clinical Impression: High blood pressure Qualifiers: Hypertension type: unspecified Qualified Code(s): I10 - Essential (primary) hypertension Condition: Stable Instructions: ED HTN Established
--- OUTSIDE RECORDS SUMMARY | 2020-08-20 05:15 | EXTERNAL MEDICAL SUMMARY RPT | Continuity of Care Document ---
:1955 Demographics Phone Unavailable Preferred Language Unknown Marital Status Unknown Jew Affiliation Unknown Race Unknown Ethnic Group Unknown Author Organization [place] Address [address] [id number] Phone Allergies Encounters Medications Problems date description facility [id number] Shortness of breath [facility] [id number] Sepsis, unspecified organism [facility] [id number] Retention of urine, unspecified [facility] [id number] Presence of xenogenic heart valve [facility] [id number] Precordial pain [facility] [id number] 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), and cerebral infarction without residual deficits [id number] Peripheral vascular disease, [facility] unspecified [id number] Paralysis of vocal cords and larynx, [facility] unspecified [id number] Hyperlipidemia, unspecified [facility] [id number] Fever, unspecified [facility] [id number] Elevated white blood cell count, [facility] unspecified [id number] Dizziness and giddiness [facility] [id number] Chronic systolic (congestive) heart [facility] failure [id number] Chest pain, unspecified [facility] [id number] 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
[2020-08-20 05:45] VITALS: BP 158/94
== END 2020-08-20 05:55 | disposition home or self-care (01) ==
LOC: EDUNIT# → ED 04:43
DX: I10 Essential (primary) hypertension (principal); F17.200 Nicotine dependence, unspecified, uncomplicated
CPT/HCPCS: 93005; 99283; 99284

== ENCOUNTER 2020-09-30 12:38 | Outpatient (CLI) | payer OTHER | END 2020-09-30 12:39 | disposition critical access hospital (66) | LOC: EMS 12:38 | DX: Z04.3 Encounter for examination and observation following other accident (principal); M25.552 Pain in left hip; M54.5 Low back pain; M25.562 Pain in left knee; M25.561 Pain in right knee; R20.0 Anesthesia of skin | CPT/HCPCS: A0425; A0429 ==

== ENCOUNTER 2020-09-30 13:19 | Emergency (ER) | payer MEDICARE, OTHER ==
--- NOTE | 2020-09-30 13:56 | ED Physician Documentation ---
PD HPI Fall - Stated complaint Stated Complaint: FALL - Chief complaint Chief Complaint: Back Pain - History obtained from History obtained from: Patient - History of Present Illness Mechanism of injury: Lost balance Fall distance: Standing position Where injury occurred: Home Timing - onset: Today Injury(ies) location: Left Lower Extremity Quality of pain: Pain Associated symptoms: Other (Weakness). No: LOC, AMS, Amnesia, Seizures, Ear drainage, Nasal drainage, Neck pain, Weakness, Paresthesias, Dyspnea, Nausea / vomiting, Hematemesis, Abdominal distension Symptoms improve with: Rest Worsens with: Movement, Palpation Contributing factors: Anticoagulated Similar symptoms before: Has not had sx before Recently seen: Not recently seen - Additional information Additional information: 65-year-old male on Coumadin was in his bathroom today shaving when he collapsed into the bathtub landing on his left hip. He states he did not hit his head he did not have loss of consciousness he denies any pain in his neck or back. He has pain in his left hip and he feels weak. The patient states that he has not been eating well and is thus weak. He has not been ill recently. Review of Systems Constitutional: denies: Fever Eyes: denies: Decreased vision Ears: denies: Ear pain Nose: denies: Rhinorrhea / runny nose, Congestion Throat: denies: Sore throat Cardiac: denies: Chest pain / pressure, Palpitations Respiratory: denies: Dyspnea, Cough GI: denies: Abdominal Pain, Nausea, Vomiting, Constipation, Diarrhea : denies: Dysuria, Frequency Skin: denies: Rash Musculoskeletal: reports: Joint pain. denies: Neck pain, Back pain Neurologic: reports: Generalized weakness. denies: Focal weakness, Numbness PD PAST MEDICAL HISTORY - Past Medical History Past Medical History: Yes Cardiovascular: Angina, [place] Respiratory: COPD Endocrine/Autoimmune: None GI: None : Benign prostate hypertrophy HEENT: Other Psych: Post traumatic stress disorder Musculoskeletal: Chronic back pain Derm: None - Past Surgical History Past Surgical History: Yes Cardiovascular: CABG, Coronary stent, Valve replacement, Other - Present Medications Home Medications: Ambulatory Orders Medication Instructions Recorded Confirmed Aspirin 81 mg PO DAILY 10/08/16 08/20/20 Tamsulosin HCl [Flomax] 0.4 mg PO DAILY 03/25/17 08/20/20 Ascorbic Acid [Vitamin C] 250 mg PO DAILY 08/20/20 08/20/20 Losartan Potassium 25 mg PO DAILY 08/20/20 08/20/20 Magnesium Oxide 1 tab PO DAILY 08/20/20 08/20/20 Senna [Senokot] 1 tab PO DAILY PRN 08/20/20 08/20/20 Warfarin [Coumadin] 5 mg PO 08/20/20 Warfarin [Coumadin] 7.5 mg PO 08/20/20 - Allergies Allergies/Adverse Reactions: Allergies Allergy/AdvReac Type Severity Reaction Status Date / Time Anxgwao-Hpz-Kvg Reductase Allergy Unknown Verified 08/20/20 04:59 Inhibitor habenero Allergy Unknown Uncoded 08/20/20 04:59 nicotine patch Allergy Unknown Uncoded 08/20/20 04:59 - Social History Does the pt smoke?: Yes Smoking Status: Current every day smoker Does the pt drink ETOH?: Yes Does the pt have substance abuse?: No - Immunizations Immunizations are current?: Yes - POLST Patient has POLST: No POLST Status: Full Code PD ED PE NORMAL - Vitals Vital signs reviewed: Yes (tachy and hypertensive ) - General General: Alert and oriented X 3, No acute distress, Well developed/nourished - HEENT HEENT: Atraumatic, PERRL, EOMI - Neck Neck: Supple, no meningeal sign, No bony TTP - Cardiac Cardiac: RRR, No murmur - Respiratory Respiratory: No respiratory distress, Clear bilaterally - Abdomen Abdomen: Normal bowel sounds, Soft, Non tender, Non distended, No organomegaly - Back Back: No CVA TTP, No spinal TTP - Derm Derm: Normal color, Warm and dry, No rash - Extremities Extremities: No deformity, No edema, Other (tender trochanter pain with movement. No shortening or rotation. ) - Neuro Neuro: Alert and oriented X 3, manager market development 2-12 intact, No motor deficit, No sensory deficit, Normal speech Eye Opening: Spontaneous Motor: Obeys Commands Verbal: Oriented GCS Score: 15 - Psych Psych: Normal mood, Normal affect Results - Vitals Vitals: Vital Signs - 24 hr 09/30/20 09/30/20 09/30/20 13:40 13:50 16:48 Temperature 36.8 C Heart Rate 115 H 114 H 112 H Respiratory 16 18 Rate Blood Pressure 172/105 H 171/102 H O2 Saturation 99 97 96 09/30/20 18:14 Temperature 37.0 C Heart Rate 113 H Respiratory 19 Rate Blood Pressure 132/99 H O2 Saturation 98 Oxygen O2 Source [] Room air O2 Source Room air - Labs Labs: Laboratory Tests 09/30/20 09/30/20 09/30/20 13:28 13:28 13:28 WBC 5.5 RBC 5.38 Hgb 11.7 L Hct 38.8 L MCV 72.1 L MCH 21.7 L MCHC 30.2 L RDW 22.3 H Plt Count 222 MPV 9.8 Neut # (Auto) 4.4 Lymph # (Auto) 0.5 L [place] # (Auto) 0.5 Eos # (Auto) 0.0 Baso # (Auto) 0.0 Absolute Nucleated RBC 0.00 Nucleated RBC % 0.0 Manual Slide Review Indicated WBC Morphology NORMAL APPEARANCE Platelet Estimate NORMAL (130-450,000) Platelet Morphology NORMAL APPEARANCE RBC Morph Micro Appear 1+ ANISOCYTOSIS PT INR Sodium 139 Potassium 3.8 Chloride 103 Carbon Dioxide 22 Anion Gap 14.0 H BUN 18 Creatinine 1.5 H Estimated GFR (MDRD) 47 L Glucose 126 H Lactic Acid 2.4 H Calcium 9.1 Total Bilirubin 0.6 AST 22 ALT 21 Alkaline Phosphatase 108 Total Protein 7.6 Albumin 3.4 Globulin 4.2 Albumin/Globulin Ratio 0.8 L Lipase 28 Urine Color Urine Clarity Urine pH Ur Specific [place] Urine Protein Urine Glucose (UA) Urine Ketones Urine Occult Blood Urine Nitrite Urine Bilirubin Urine Urobilinogen Ur Leukocyte Esterase Urine RBC Urine WBC Ur Squamous Epith Cells Amorphous Sediment Urine Bacteria Ur Microscopic Review Urine Culture Comments 09/30/20 09/30/20 13:28 16:43 WBC RBC Hgb Hct MCV MCH MCHC RDW Plt Count MPV Neut # (Auto) Lymph # (Auto) [place] # (Auto) Eos # (Auto) Baso # (Auto) Absolute Nucleated RBC Nucleated RBC % Manual Slide Review WBC Morphology Platelet Estimate Platelet Morphology RBC Morph Micro Appear PT 14.4 H INR 1.3 H Sodium Potassium Chloride Carbon Dioxide Anion Gap BUN Creatinine Estimated GFR (MDRD) Glucose Lactic Acid Calcium Total Bilirubin AST ALT Alkaline Phosphatase Total Protein Albumin Globulin Albumin/Globulin Ratio Lipase Urine Color YELLOW Urine Clarity CLEAR Urine pH 6.0 Ur Specific [place] 1.015 Urine Protein 30 H Urine Glucose (UA) NEGATIVE Urine Ketones NEGATIVE Urine Occult Blood LARGE H Urine Nitrite NEGATIVE Urine Bilirubin NEGATIVE Urine Urobilinogen 0.2 (NORMAL) Ur Leukocyte Esterase NEGATIVE Urine RBC None Seen Urine WBC 0-3 Ur Squamous Epith Cells NONE SEEN Amorphous Sediment Rare Urine Bacteria None Seen Ur Microscopic Review INDICATED Urine Culture Comments NOT INDICATED - Rads (name of study) hip Radiology: Prelim report reviewed, EMP read indepedently, See rad report chest Radiology: Prelim report reviewed (Impression: The appearance of the heart is significantly changed from the most recent available comparison from 10/08/2016. The morphology of the heart previously had been normal. The current morphology is lobulated along the margins and globular in this border. ), Final report received (An intermediate aortic valve procedure appears to have been performed. Is unclear whether some of this cardiac or aortic abnormality is present associated with these changes. Depending on the clinical status follow-up by contrast-enhanced CT scanning may be warranted.), EMP read indepedently, See rad report Procedures - IVC sono (time) 1350 Bedside IVC sono: IVC measures (cm) (1.02), Dehydration (est 1-2 liter deficit .) PD MEDICAL DECISION MAKING - ED course Complexity details: reviewed old records, reviewed results, re-evaluated patient, considered differential, d/w patient ED course: 65-year-old male complaining of generalized weakness has had a fall injuring his left hip. He presents to the emergency department feeling weak and requiring assistance to sit up in bed. He is found to be dehydrated on interrogation the inferior vena cava and is administered saline intravenously after 1 L of saline he feels much improved and a second liter is begun. X-rays of his hip are without evidence of fracture or dislocation to the hip or pelvis. Departure - Departure Disposition: 01 Home, Self Care Clinical Impression: Dehydration Contusion of left thigh Qualifiers: Encounter type: initial encounter Qualified Code(s): S70.12XA - Contusion of left thigh, initial encounter Condition: Stable Instructions: ED Dehydration, ED Contusion Hip Follow-Up: Your, doctor [Other] Discharge Date/Time: 09/30/20 18:49
[2020-09-30 14:01] LABS: BASOPHILS % (AUTO) 0.7 %; EOSINOPHILS % (AUTO) 0.2 %; HCT - HEMATOCRIT 38.8 % (42.0-52.0); HGB - HEMOGLOBIN 11.7 g/dL (14.0-18.0); LYMPHOCYTES # (AUTO) 0.5 10^3/uL (1.5-3.5); LYMPHOCYTES % (AUTO) 9.7 %; MEAN CORPUSCULAR HEMOGLOBIN 21.7 pg (27.0-31.0); MEAN CORPUSCULAR HGB CONC 30.2 g/dL (32.0-36.0); MEAN CORPUSCULAR VOLUME 72.1 fL (80.0-94.0); MEAN PLATELET VOLUME 9.8 fL (7.4-11.4); MONOCYTES # (AUTO) 0.5 10^3/uL (0.0-1.0); MONOCYTES % (AUTO) 8.8 %; NEUTROPHILS # (AUTO) 4.4 10^3/uL (1.5-6.6); NEUTROPHILS % (AUTO) 80.2 %; PLT - PLATELET COUNT 222 10^3/uL (130-450); RED BLOOD COUNT 5.38 10^6/uL (4.70-6.10); RED CELL DISTRIBUTION WIDTH 22.3 % (12.0-15.0); WHITE BLOOD COUNT 5.5 x10^3/uL (4.8-10.8)
[2020-09-30 14:04] LABS: SLIDE REVIEW? Indicated
[2020-09-30 14:07] LABS: INR 1.3 (0.8-1.2); PT - PROTHROMBIN TIME 14.4 secs (9.9-12.6)
[2020-09-30 14:12] LABS: ALBUMIN 3.4 g/dL (3.2-5.5); ALBUMIN/GLOBULIN RATIO 0.8 (1.0-2.2); BILIRUBIN,TOTAL 0.6 mg/dL (0.2-1.0); CALCIUM 9.1 mg/dL (8.5-10.3); CREATININE 1.5 mg/dL (0.6-1.2); POTASSIUM 3.8 mmol/L (3.5-5.0); TOTAL PROTEIN 7.6 g/dL (6.7-8.2)
[2020-09-30 14:23] LABS: PLATELET ESTIMATE, MANUAL NORMAL (130-450,000) (NORMAL); PLATELET MORPHOLOGY NORMAL APPEARANCE (NORMAL); RBC MORPHOLOGY (MULTIPLE) 1+ ANISOCYTOSIS (NORMAL); WBC MORPHOLOGY (MULTIPLE) NORMAL APPEARANCE (NORMAL)
--- NOTE | 2020-09-30 14:24 | XRAY Report ---
PROCEDURE: Chest 1 View X-Ray INDICATIONS: chest pain TECHNIQUE: One view of the chest was acquired. COMPARISON: Prior chest CT with contrast 02/13/2015 reviewed. Also, the most recent comparison chest plain film from 10/08/2016 is reviewed. FINDINGS: Surgical changes and devices: Aortic valve stent annulus is present. Lungs and pleura: No pleural effusions or pneumothorax. Lungs are clear. Mediastinum: Mediastinal contours appear abnormal, globular, lobulated above the aortic arch and pot entially a manifestation of aortic aneurysm and cardiac border abnormality of uncertain etiology.. H eart size is normal. Bones and chest wall: No suspicious bony lesions. Overlying soft tissues appear unremarkable. IMPRESSION: The appearance of the heart is significantly changed from the most recent available comparison from . The morphology of the heart previously had been normal. The current morphology is lobulated along its margins and globular in its border. An intervening aortic valve procedure appears to have been performed. It is unclear whether some form of cardiac or aortic abnormality is present associate d with these changes. Depending on the clinical status follow-up by contrast-enhanced CT scanning may be warranted. Reviewed by: Justino Reid MD on 09/30/2020 2:23 PM PDT Approved by: Justino Reid MD on 09/30/2020 2:23 PM PDT Station ID: [id number]
--- NOTE | 2020-09-30 14:26 | XRAY Report ---
Dominant O PROCEDURE: Hip w/Pelvis 2-3V LT INDICATIONS: fall, pain TECHNIQUE: AP pelvis with lateral view(s) of the left hip(s). COMPARISON: None. FINDINGS: Bones: No fractures or dislocations. Pelvic ring appears intact. No suspicious bony lesions. Soft tissues: The visualized bowel gas pattern is normal. No suspicious soft tissue calcifications. IMPRESSION: This is a normal study. Reviewed by: Justino Reid MD on 09/30/2020 2:24 PM PDT Approved by: Justino Reid MD on 09/30/2020 2:24 PM PDT Station ID: [id number]
[2020-09-30] MEDS ORDERED: SODIUM CHLORIDE 0.9% 1,000 ML IV STA ×2 (14:55→16:39)
[2020-09-30 17:06] LABS: BILIRUBIN,URINE NEGATIVE (NEGATIVE); GLUCOSE, URINE (UA) NEGATIVE (NEGATIVE); KETONES,URINE (UA) NEGATIVE (NEGATIVE); LEUKOCYTE ESTERASE, URINE NEGATIVE (NEGATIVE); NITRITE,URINE NEGATIVE (NEGATIVE); OCCULT BLOOD,URINE LARGE (NEGATIVE); PROTEIN,URINE 30 mg/dL (NEGATIVE); UROBILINOGEN,URINE 0.2 (NORMAL) E.U./dL (NORMAL)
[2020-09-30 17:10] LABS: CLARITY,URINE CLEAR (CLEAR)
[2020-09-30 17:27] LABS: AMORPHOUS SEDIMENT,UR Rare /LPF; BACTERIA,URINE None Seen /HPF (None Seen); RBC,URINE None Seen /HPF (0-5); SQUAMOUS EPITHELIAL CELL,UR NONE SEEN (<= Few); WBC,URINE 0-3 /HPF (0-3)
[2020-09-30 18:15] VITALS: BP 132/99
== END 2020-09-30 18:49 | disposition home or self-care (01) ==
LOC: EDUNIT# → ED 13:19
DX: E86.0 Dehydration (principal); S70.12XA Contusion of left thigh, initial encounter; W18.39XA Other fall on same level, initial encounter; Y93.E8 Activity, other personal hygiene; Y92.002 Bathroom of unspecified non-institutional (private) residence as the place of occurrence of the external cause; F17.200 Nicotine dependence, unspecified, uncomplicated
CPT/HCPCS: 36415; 80053; 81001; 81003; 83605; 83690; 85025; 85610; 87086; 96360; 96361; 99284

== ENCOUNTER 2020-10-03 16:35 | Outpatient (CLI) | payer OTHER | END 2020-10-03 16:36 | disposition critical access hospital (66) | LOC: EMS 16:35 | DX: R06.02 Shortness of breath (principal) | CPT/HCPCS: A0425; A0427 ==

== ENCOUNTER 2020-10-03 17:12 | Inpatient (IN) | payer OTHER ==
[2020-10-03] MEDS ORDERED: MORPHINE 2 MG/ML CARPUJECT IVP STA (17:23)
--- NOTE | 2020-10-03 17:27 | ED Physician Documentation ---
PD HPI DYSPNEA - Stated complaint Stated Complaint: SOA/C+ - History obtained from History obtained from: Patient, EMS - Additional information Additional information: 65-year-old gentleman with history of TAVR, strokes, tobacco use presents with several days worth of illness and dyspnea. Household contacts with positive Covid. He has not been immunized. Sats of 30% on room air on the way here. Patient refusing intubation. Review of Systems Unable to obtain: Confused PD PAST MEDICAL HISTORY - Past Medical History Cardiovascular: Angina, [place] Respiratory: COPD Endocrine/Autoimmune: None GI: None : Benign prostate hypertrophy HEENT: Other Psych: Post traumatic stress disorder Musculoskeletal: Chronic back pain Derm: None - Past Surgical History Past Surgical History: Yes Cardiovascular: CABG, Coronary stent, Valve replacement, Other - Present Medications Home Medications: Ambulatory Orders Medication Instructions Recorded Confirmed Aspirin 81 mg PO DAILY 10/08/16 08/20/20 Tamsulosin HCl [Flomax] 0.4 mg PO DAILY 03/25/17 08/20/20 Ascorbic Acid [Vitamin C] 250 mg PO DAILY 08/20/20 08/20/20 Losartan Potassium 25 mg PO DAILY 08/20/20 08/20/20 Magnesium Oxide 1 tab PO DAILY 08/20/20 08/20/20 Senna [Senokot] 1 tab PO DAILY PRN 08/20/20 08/20/20 Warfarin [Coumadin] 5 mg PO 08/20/20 Warfarin [Coumadin] 7.5 mg PO 08/20/20 - Allergies Allergies/Adverse Reactions: Allergies Allergy/AdvReac Type Severity Reaction Status Date / Time Ebcllko-Zuz-Wgg Reductase Allergy Unknown Verified 10/03/20 17:30 Inhibitor habenero Allergy Unknown Uncoded 10/03/20 17:30 nicotine patch Allergy Unknown Uncoded 10/03/20 17:30 - Social History Does the pt smoke?: Yes Smoking Status: Current every day smoker Does the pt drink ETOH?: Yes Does the pt have substance abuse?: No - Immunizations Immunizations are current?: Yes - POLST Patient has POLST: No POLST Status: Full Code PD ED PE NORMAL - Vitals Vital signs reviewed: Yes - General General: Other (Alert and follow commands, garbled speech) - HEENT HEENT: PERRL, EOMI - Neck Neck: Supple, no meningeal sign, No bony TTP - Cardiac Cardiac: RRR, No murmur - Respiratory Respiratory: Other (tachypneic and diminished) - Abdomen Abdomen: Normal bowel sounds, Soft, Non tender - Back Back: No CVA TTP, No spinal TTP - Derm Derm: Normal color, Warm and dry - Extremities Extremities: No edema, No calf tenderness / cord - Neuro Eye Opening: Spontaneous Motor: Obeys Commands Verbal: Confused GCS Score: 14 Results - Vitals Vitals: Vital Signs - 24 hr 10/03/20 10/03/20 17:24 17:30 Temperature 37.5 C Heart Rate 114 H Respiratory 22 Rate Blood Pressure 135/79 H O2 Saturation 88 L Oxygen O2 Source [Without Activity] Room air O2 Source Ambu bag - Labs Labs: Laboratory Tests 10/03/20 10/03/20 10/03/20 17:42 17:54 17:54 WBC 5.8 RBC 5.17 Hgb 11.3 L Hct 38.1 L MCV 73.7 L MCH 21.9 L MCHC 29.7 L RDW 23.0 H Plt Count 146 MPV 9.0 Neut # (Auto) Not Reportable Lymph # (Auto) Not Reportable [place] # (Auto) Not Reportable Eos # (Auto) Not Reportable Baso # (Auto) Not Reportable Absolute Nucleated RBC Not Reportable Total Counted 100 Band Neuts % (Manual) 30 H Abnorm Lymph % (Manual) 0 Metamyelocytes % 5 H Nucleated RBC % Not Reportable Neutrophils # (Manual) 5.0 Lymphocytes # (Manual) 0.4 L Monocytes # (Manual) 0.1 Eosinophils # (Manual) 0.0 Basophils # (Manual) 0.0 Differential Comment MANUAL DIFFERENTIAL WBC Morphology 1+ VACUOLATION Platelet Estimate NORMAL (130-450,000) Platelet Morphology NORMAL APPEARANCE RBC Morph Micro Appear 1+ OVALOCYTES PT INR Sodium 136 Potassium 4.1 Chloride 101 Carbon Dioxide 23 Anion Gap 12.0 BUN 32 H Creatinine 2.2 H Estimated GFR (MDRD) 30 L Glucose 126 H Calcium 8.1 L Magnesium 1.4 L Total Bilirubin 0.6 AST 164 H ALT 46 Alkaline Phosphatase 55 Troponin I High Sens B-Natriuretic Peptide Total Protein 6.7 Albumin 2.9 L Globulin 3.8 Albumin/Globulin Ratio 0.8 L Nasal Adenovirus (PCR) NOT DETECTED Nasal B. parapertussis DNA (PCR) NOT DETECTED Nasal Coronavir 229E PCR NOT DETECTED Nasal Coronavir HKU1 PCR NOT DETECTED Nasal Coronavir NL63 PCR NOT DETECTED Nasal Coronavir OC43 PCR NOT DETECTED Nasal Enterovir/Rhinovir PCR NOT DETECTED Nasal Influenza B PCR NOT DETECTED Nasal Influenza A PCR NOT DETECTED Nasal Parainfluen 1 PCR NOT DETECTED Nasal Parainfluen 2 PCR NOT DETECTED Nasal Parainfluen 3 PCR NOT DETECTED Nasal Parainfluen 4 PCR NOT DETECTED Nasal RSV (PCR) NOT DETECTED Nasal B.pertussis DNA PCR NOT DETECTED Nasal C.pneumoniae (PCR) NOT DETECTED [place] Human Metapneumo PCR NOT DETECTED Nasal M.pneumoniae (PCR) NOT DETECTED Nasal SARS-CoV-2 (PCR) DETECTED A 10/03/20 10/03/20 10/03/20 17:54 17:54 17:54 WBC RBC Hgb Hct MCV MCH MCHC RDW Plt Count MPV Neut # (Auto) Lymph # (Auto) [place] # (Auto) Eos # (Auto) Baso # (Auto) Absolute Nucleated RBC Total Counted Band Neuts % (Manual) Abnorm Lymph % (Manual) Metamyelocytes % Nucleated RBC % Neutrophils # (Manual) Lymphocytes # (Manual) Monocytes # (Manual) Eosinophils # (Manual) Basophils # (Manual) Differential Comment WBC Morphology Platelet Estimate Platelet Morphology RBC Morph Micro Appear PT 16.0 H INR 1.5 H Sodium Potassium Chloride Carbon Dioxide Anion Gap BUN Creatinine Estimated GFR (MDRD) Glucose Calcium Magnesium Total Bilirubin AST ALT Alkaline Phosphatase Troponin I High Sens 174.3 H* B-Natriuretic Peptide 610 H Total Protein Albumin Globulin Albumin/Globulin Ratio Nasal Adenovirus (PCR) Nasal B. parapertussis DNA (PCR) Nasal Coronavir 229E PCR Nasal Coronavir HKU1 PCR Nasal Coronavir NL63 PCR Nasal Coronavir OC43 PCR Nasal Enterovir/Rhinovir PCR Nasal Influenza B PCR Nasal Influenza A PCR Nasal Parainfluen 1 PCR Nasal Parainfluen 2 PCR Nasal Parainfluen 3 PCR Nasal Parainfluen 4 PCR Nasal RSV (PCR) Nasal B.pertussis DNA PCR Nasal C.pneumoniae (PCR) [place] Human Metapneumo PCR Nasal M.pneumoniae (PCR) Nasal SARS-CoV-2 (PCR) PD MEDICAL DECISION MAKING - ED course ED course: I had long talks with initially Paramjit and then his POA Ivelisse who is available at [phone]. Magdi has made it very clear that he would not want intubation for any length of time or further invasive medical procedures. She understands the critical nature of his illness and potential likelihood for demise without intubation or frankly even with intubation but maintains that he would not want to be intubated and has made his wishes clear. As such I agreed we will give him supplemental oxygen therapy, morphine, and treat him conservatively and hopefully but with the understanding that his risk of mortality is quite high. She would like a call if there are any changes or in the event of his demise. She will be traveling so request we received leave a voicemail. [facility], [facility] have no beds available. Spoke with Dr. Bo for admission here at 5:45 PM. - Critical Care Time(min): 45 Time Includes: Direct patient care, Review records, Reassess patient, Document care, Coordinate care, Medical consult, Family consult for tx dec Data interpretation: Labs, Pulse ox Procedures included in critical care time: Peripheral IV Departure - Departure Disposition: 66 [facility] DC/Xfer Clinical Impression: Pneumonia due to COVID-19 virus, Acute hypoxemic respiratory failure Condition: Critical Discharge Date/Time: 10/03/20 18:40
[2020-10-03] MEDS ORDERED: ALBUTEROL NEB 2.5 MG/3 ML INH PRN (17:59)
[2020-10-03] MEDS ORDERED: ACETAMINOPHEN 325 MG TABLET PO PRN (17:59)
[2020-10-03] MEDS ORDERED: ONDANSETRON 4 MG/2 ML VIAL IVP PRN (17:59)
[2020-10-03 18:02] LABS: BASOPHILS % (AUTO) 0.3 %; EOSINOPHILS % (AUTO) 3.9 %; HCT - HEMATOCRIT 38.1 % (42.0-52.0); HGB - HEMOGLOBIN 11.3 g/dL (14.0-18.0); LYMPHOCYTES % (AUTO) 5.1 %; MEAN CORPUSCULAR HEMOGLOBIN 21.9 pg (27.0-31.0); MEAN CORPUSCULAR HGB CONC 29.7 g/dL (32.0-36.0); MEAN CORPUSCULAR VOLUME 73.7 fL (80.0-94.0); MONOCYTES % (AUTO) 1.9 %; NEUTROPHILS % (AUTO) 88.5 %; PLT - PLATELET COUNT 146 10^3/uL (130-450); RED BLOOD COUNT 5.17 10^6/uL (4.70-6.10); WHITE BLOOD COUNT 5.8 x10^3/uL (4.8-10.8)
[2020-10-03 18:05] LABS: ABNORMAL LYMPHS % (MANUAL) 0 %
--- NOTE | 2020-10-03 18:07 | XRAY Report ---
PROCEDURE: Chest 1 View X-Ray INDICATIONS: dyspnea TECHNIQUE: One view of the chest was acquired. COMPARISON: CT anterior neck, 03/25/2017. X-ray chest 1 view, 08/31/2020. FINDINGS: Surgical changes and devices: None. Lungs and pleura: Bilateral interstitial prominence. No pleural effusions or pneumothorax. Mediastinum: Widening of mediastinal contour. There is a hyperdensity above the aortic bulb. There is a aortic valve prosthesis. Heart size is normal. Bones and chest wall: No suspicious bony lesions. Overlying soft tissues appear unremarkable. IMPRESSION: 1. Bilateral interstitial prominence suggests pulmonary edema. 2. Widening of the mediastinal contour. There is a masslike density superior to the aortic bulb. Ches t CT is suggested for follow-up. Reviewed by: Josias Sanchez MD on 10/03/2020 6:05 PM PDT Approved by: Josias Sanchez MD on 10/03/2020 6:05 PM PDT Station ID: [id number]
[2020-10-03 18:19] LABS: ALBUMIN 2.9 g/dL (3.2-5.5); ALBUMIN/GLOBULIN RATIO 0.8 (1.0-2.2); BILIRUBIN,TOTAL 0.6 mg/dL (0.2-1.0); CALCIUM 8.1 mg/dL (8.5-10.3); CREATININE 2.2 mg/dL (0.6-1.2); MAGNESIUM 1.4 mg/dL (1.7-2.8); POTASSIUM 4.1 mmol/L (3.5-5.0); TOTAL PROTEIN 6.7 g/dL (6.7-8.2)
[2020-10-03 18:49] LABS: INR 1.5 (0.8-1.2)
[2020-10-03 18:52] LABS: BAND NEUTROPHILS % (MANUAL) 30 %; LYMPHOCYTES # (MANUAL) 0.4 10^3/uL (1.5-3.5); LYMPHOCYTES % (MANUAL) 7 %; METAMYELOCYTES % (MANUAL) 5 %; MONOCYTES # (MANUAL) 0.1 10^3/uL (0.0-1.0)
[2020-10-03 18:58] LABS: PLATELET ESTIMATE, MANUAL NORMAL (130-450,000) (NORMAL); PLATELET MORPHOLOGY NORMAL APPEARANCE (NORMAL)
[2020-10-03 18:59] LABS: DIFFERENTIAL COMMENT MANUAL DIFFERENTIAL; WBC MORPHOLOGY (MULTIPLE) 1+ VACUOLATION (NORMAL)
[2020-10-03 19:15] LABS: CORONAVIRUS 229E-RESP PCR NOT DETECTED; CORONAVIRUS HKU1-RESP PCR NOT DETECTED; CORONAVIRUS NL63-RESP PCR NOT DETECTED; CORONAVIRUS OC43-RESP PCR NOT DETECTED
[2020-10-03 19:17] LABS: SARS-CoV-2 -RESP PCR PANEL DETECTED
[2020-10-03 19:18] LABS: B. PARAPERTUSSIS- RESP PCR PAN NOT DETECTED; B. PERTUSSIS- RESP PCR PANEL NOT DETECTED; C. PNEUMONIAE- RESP PCR PANEL NOT DETECTED; HUMAN METAPNEUMOVIRUS NOT DETECTED; INFLUENZA A- RESP PCR PANEL NOT DETECTED; INFLUENZA B - RESP PCR PANEL NOT DETECTED; M. PNEUMONIAE- RESP PCR PANEL NOT DETECTED; PARAINFLUENZA VIRUS 1 NOT DETECTED; PARAINFLUENZA VIRUS 2 NOT DETECTED; PARAINFLUENZA VIRUS 3 NOT DETECTED; PARAINFLUENZA VIRUS 4 NOT DETECTED; RHINOVIRUS/ENTEROVIRUS NOT DETECTED; RSV- RESP PCR PANEL NOT DETECTED
[2020-10-03] MEDS: cefTRIAXone 2 GM in SODIUM CHLORIDE 0.9% MINIBAG 100 ML IV SCH (19:50)
[2020-10-03] MEDS: DEXAMETHASONE 10 MG/ML VIAL IVP SCH (19:52)
[2020-10-03] MEDS: AZITHROMYCIN INJ 500 MG in SODIUM CHLORIDE 0.9% 250 ML IV SCH (20:30)
[2020-10-03] MEDS: SODIUM CHLORIDE FLUSH 0.9% 10 ML SYRINGE IVP PRN (20:31)
[2020-10-03] MEDS: SODIUM CHLORIDE FLUSH 0.9% 10 ML SYRINGE IVP SCH (23:22)
--- NOTE | 2020-10-04 02:27 | HISTORY & PHYSICAL EXAMINATION ---
Chief Complaint - Chief Complaint Chief Complaint: cough and sob History of Present Illness - Admitted From Admitted From:: Home via EMS - History Obtained From Records Reviewed: [facility] History obtained from: Dr. Angela Exam Limitations: patient is confused, hypoxic and can't speak much - History of Present Illness HPI Comment/Other: The history and physical was performed on admission which was October 03. It is now being typed up on October 04 within the 24 hours for history and physical. He is a 65-year-old white male whose past medical history is that of TIAs and strokes, hypertension, angina with an VA, and a TAVR that presents with cough, shortness of breath. His entire household has Covid pneumonia. He still sm okes. He has been sick for close to a week with chills, malaise, lack of appetite. A mild dry cough. Shortness of breath. He has not been immunized. In the EMS ambulance, his O2 sats were 30% on room air on the way here. Once here we realized that his hands and feet are very, very cold. Once you put an O2 sat monitor on his forehead or earlobe his O2 sats are more in the 80s. He was seen in the emergency room with a temperature of 37.5. Heart rate 114. Respiration 22. Blood pressure 135/79. O2 sat on room air was 88%. He was a confused male who was able to follow commands but had garbled speech. No meningeal findings. A regular rate and rhythm that was tachycardic. He was tac hypneic, had diffusely diminished breath sounds. No clubbing cyanosis or edema. BUN was 32, creatinine 2.2. White cell count 5.8. Hemoglobin 11.3. INR 1.5. Troponin is 174, BNP 610. He Dr. Angela was able to make contact with Paramjit and then his power of senior trial attorney Ivelisse. The patient and Ivelisse states that he does not want intubation for any length of time, and he does not want any further invasive procedures. If he is having a heart attack, then we should treat that here as much as we can and keep him comfortable. He is a [facility] patient. We have called the [place] but they have no beds. As such the patient is now admitted for Covid pneumonia and acute respiratory failure. 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 His mom of heart in her late 70;s. 1 brother is health. 1 sister has had heart attack, bypass surgery and stroke. no children Living arrangement: At home Living Situation: With family (sister, her , and nephew) Social History Notes: He has lived all over because of the [employer]. Born in [place] He is not service connected. smokes cigars and cigarettes. alcohol use is about twice a year without a hx of abuse. twice in the past to the same woman. 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 No history of recreational substance abuse. - Substance History Use: Uses substance without health or social issues: Tobacco - POLST Patient has POLST: No POLST Status: DNR Meds/Allgy - Home Medications Home Medications: Ambulatory Orders Medication Instructions Recorded Confirmed Aspirin 81 mg PO DAILY 10/08/16 08/20/20 Tamsulosin HCl [Flomax] 0.4 mg PO DAILY 03/25/17 08/20/20 Ascorbic Acid [Vitamin C] 250 mg PO DAILY 08/20/20 08/20/20 Losartan Potassium 25 mg PO DAILY 08/20/20 08/20/20 Magnesium Oxide 1 tab PO DAILY 08/20/20 08/20/20 Senna [Senokot] 1 tab PO DAILY PRN 08/20/20 08/20/20 Warfarin [Coumadin] 5 mg PO 08/20/20 Warfarin [Coumadin] 7.5 mg PO 08/20/20 - Allergies Allergies/Adverse Reactions: Allergies Allergy/AdvReac Type Severity Reaction Status Date / Time Jkpzipt-Mxs-Hee Reductase Allergy Unknown Verified 10/03/20 17:30 Inhibitor habenero Allergy Unknown Uncoded 10/03/20 17:30 nicotine patch Allergy Unknown Uncoded 10/03/20 17:30 Review of Systems - All Other Systems All Other Systems: reports: Other (This patient has a BiPAP mask on, is alert, conversant with me but the mask makes it difficult for him to speak to me. He is also confused, trying very hard to stay focused but cannot.) Prior Level of Functionality: Independent with activities of daily living. Can dress himself, feed himself. He is dependent on his family for bill pain, driving him to appointments, getting groceries etc. Exam - Vital Signs Reviewed Vital Signs: Yes Vital Signs: Vital Signs x48h Temp Pulse Pulse Resp BP BP Pulse Ox 10/04/20 00:52 102 H 10/04/20 00:00 37.0 C 101 H 15 117/77 96 10/03/20 23:00 101 H 15 106/78 97 10/03/20 22:00 102 H 19 115/87 H 100 10/03/20 21:49 102 H 10/03/20 21:40 103 H 16 10/03/20 21:35 101 H 15 10/03/20 21:30 101 H 17 10/03/20 21:25 101 H 15 10/03/20 21:20 99 30 H 10/03/20 21:15 100 15 10/03/20 21:10 100 15 10/03/20 21:05 99 15 10/03/20 21:01 98 18 10/03/20 21:00 99 99 15 97/69 97/69 10/03/20 20:59 99 15 10/03/20 20:55 99 14 10/03/20 20:50 98 14 10/03/20 20:45 98 13 10/03/20 20:40 96 14 10/03/20 20:35 96 14 10/03/20 20:31 97 16 10/03/20 20:30 97 14 99/75 10/03/20 20:29 97 14 10/03/20 20:25 97 14 10/03/20 20:20 97 13 10/03/20 20:15 98 18 10/03/20 20:10 98 19 10/03/20 20:05 98 20 10/03/20 20:01 100 16 10/03/20 20:00 36.7 C 98 16 110/70 110/70 14 L 10/03/20 19:59 97 14 10/03/20 19:55 98 14 10/03/20 19:50 99 14 10/03/20 19:45 99 15 10/03/20 19:40 98 14 10/03/20 19:35 99 14 10/03/20 19:31 100 14 10/03/20 19:30 99 14 116/77 10/03/20 19:29 99 14 10/03/20 19:25 99 15 10/03/20 19:20 100 15 10/03/20 19:15 100 15 10/03/20 19:10 101 H 16 10/03/20 19:05 98 15 10/03/20 19:01 101 H 15 10/03/20 19:00 99 100 16 113/82 H 133/82 H 96 10/03/20 18:59 99 15 10/03/20 18:56 100 15 116/77 10/03/20 18:55 98 16 10/03/20 18:51 100 16 10/03/20 18:30 101 H 17 97/60 92 - Physical Exam General Appearance: positive: Alert, Mild distress (He is not as tachypneic or tachycardic as he was in the emergency room. He appears frightened and that he will not like overhand and wants you to sit with him.), Other (Thin male, with guzman and mustache, with BiPAP. confused. eyes wide open. glazed, unaware appearance as he looks at me) Eyes Bilateral: positive: PERRL, EOMI ENT: positive: Dry mucous membranes (Mouth breathing.) Neck: positive: No JVD. negative: Stiff neck Respiratory: positive: No respiratory distress (At this point no tachypnea, no use of accessory muscles and sternocleidomastoid is not prominent). negative: Wheezes, Rales, Rhonchi Cardiovascular: positive: Regular rate & rhythm, Tachycardia, Systolic murmur. negative: Gallop/S4, Friction rub Peripheral Pulses: positive: 0 Abdomen: positive: Non-tender, No organomegaly, No distention, Abnml bowel sounds (Hypoactive, quiet) Skin: positive: Other (Forehead, trunk is warm. Hands and feet are ice, ice cold.) Extremities: positive: Non-tender, Full ROM, No pedal edema Neurologic/Psychiatric: positive: CN's nml (2-12), Motor nml, Disoriented to place, Disoriented to time, Weakness, Other (psychomotor slowing when he processes questions and then will try to speak or say yes/no.) Conclusion/Plan - Problem List (1) Acute hypoxemic respiratory failure Conclusion/Plan: Due to combination of Covid pneumonia and a history of possible fibrosis due to smoking. Plan: Inpatient stay Treat underlying factors DNR status (2) Pneumonia due to COVID-19 virus Conclusion/Plan: Decadron started in the emergency room. Empiric antibiotic therapy for possible secondary pneumonia in the form of Rocephin and azithromycin also started. We will order remdesivir protocol to start tomorrow. DVT prophylaxis is ongoing with Coumadin. Will do daily CBC, BMP, C-reactive protein as well as LDH. We will do CT of the chest tomorrow morning due to abnormal chest x-ray. (3) CKD (chronic kidney disease) stage 2, GFR 60-89 ml/min Conclusion/Plan: With acute Worsening. This is a gentleman who most likely has had diminished p.o. intake in the face of illness for the last few days. I suspect dehydration as the cause. His creatinine was 1.0 in 2017. Is gradually been creeping up to 1.2 then 1.3. Today he is 2.2. Plan: Hydration, recheck daily, avoid nephrotoxic agent (4) HTN (hypertension), benign Conclusion/Plan: He usually takes losartan. Blood pressure is normal but for him probably low. As such I will hold off on losartan and watch his blood pressure over the next couple of days before resuming (5) Non-ST elevated myocardial infarction (non-STEMI) Conclusion/Plan: Initial troponin is high at 174. EKG has nonspecific ST-T wave changes. He is already on Coumadin. We will add aspirin, Beta-mikey.Cannot to statin since he is allergic. Recheck troponin x2. Check EKG tomorrow. Family is not interested in transferring this patient on the basis of his wishes to focus on symptom management with minimal intervention. (6) Tobacco abuse Conclusion/Plan: no bronchospasm on exam. if wheezing starts will use duoneb. already on steroids. cannot do nicotine patch. - Lab Results Lab results reviewed: Yes Fish Bones: 10/03/20 17:54 07/11/21 17:54 - Diagnostic Imaging Results Diagnostic Imaging Results: positive: Final report reviewed Diagnostic Imaging Results Comments: Chest x-ray with bilateral interstitial prominence suggestive of pulmonary edema. Widening of the mediastinal contour. Masslike density superior to the aortic bulb. Chest CT suggested for follow-up. Core Measures - Anticipated LOS I expect patient to be DC'd or transferred within 96 hours.: Yes - DVT/VTE - Prophylaxis VTE/DVT Device ordered at admit?: Yes - AMI - Statin at Admit Aspirin Prescribed on Admit: No Not Ordered - Medical Reason: Hx of drug allergy
[2020-10-04 07:21] LABS: ALBUMIN 2.8 g/dL (3.2-5.5); BILIRUBIN,DIRECT 0.2 mg/dL (0.1-0.5); BILIRUBIN,TOTAL 0.5 mg/dL (0.2-1.0); CALCIUM 7.8 mg/dL (8.5-10.3); CREATININE 2.3 mg/dL (0.6-1.2); MAGNESIUM 1.5 mg/dL (1.7-2.8); POTASSIUM 4.6 mmol/L (3.5-5.0); TOTAL PROTEIN 6.6 g/dL (6.7-8.2)
[2020-10-04 07:24] LABS: BASOPHILS % (AUTO) 0.4 %; MEAN CORPUSCULAR VOLUME 73.7 fL (80.0-94.0)
[2020-10-04 07:30] LABS: HCT - HEMATOCRIT 38.2 % (42.0-52.0); HGB - HEMOGLOBIN 11.3 g/dL (14.0-18.0); LYMPHOCYTES % (AUTO) 6.4 %; MEAN CORPUSCULAR HEMOGLOBIN 21.8 pg (27.0-31.0); MEAN CORPUSCULAR HGB CONC 29.6 g/dL (32.0-36.0); MONOCYTES % (AUTO) 2.3 %; NEUTROPHILS % (AUTO) 87.7 %; PLT - PLATELET COUNT 130 10^3/uL (130-450); RED BLOOD COUNT 5.18 10^6/uL (4.70-6.10); RED CELL DISTRIBUTION WIDTH 23.2 % (12.0-15.0); WHITE BLOOD COUNT 5.6 x10^3/uL (4.8-10.8)
--- NOTE | 2020-10-04 07:37 | PROVIDER PROGRESS NOTE ---
Subjective - Prog Note Date Prog Note Date: 10/04/20 - Subjective Subjective: He remains on BiPAP in the intensive care unit. He denies chest pain and shortness of breath. History is limited as he is on BiPAP. Current Medications - Current Medications Current Medications: Active Medications Acetaminophen (Acetaminophen 325 Mg Tablet) 650 mg PO Q4HR PRN PRN Reason: Pain 1 to 4 Albuterol (Albuterol Neb 2.5 Mg/3 Ml) 2.5 mg INH Q4HR PRN PRN Reason: Wheezing Dexamethasone (Dexamethasone 10 Mg/Ml Vial) 6 mg IVP DAILY [facility] Last Admin: 10/04/20 08:47 Dose: 6 mg Documented by: Enoxaparin Sodium (Enoxaparin 40 Mg/0.4 Ml Syringe) 40 mg SUBQ DAILY [facility] Last Admin: 10/04/20 08:43 Dose: 40 mg Documented by: Ceftriaxone Sodium 2 gm/ (Sodium Chloride) 100 mls @ 200 mls/hr IV DAILY [facility] Last Infusion: 10/04/20 10:40 Dose: Infused Documented by: Azithromycin 500 mg/ Sodium (Chloride) 250 mls @ 250 mls/hr IV DAILY [facility] Last Infusion: 10/04/20 12:20 Dose: Infused Documented by: Remdesivir 100 mg/ Sodium (Chloride) 100 mls @ 200 mls/hr IV DAILY [facility] Stop: 10/08/20 09:29 Morphine Sulfate (Morphine 2 Mg/Ml Carpuject) 2 mg IVP Q2HR PRN PRN Reason: Dyspnea Ondansetron HCl (Ondansetron 4 Mg/2 Ml Vial) 4 mg IVP Q6HR PRN PRN Reason: Nausea / Vomiting Sodium Chloride (Sodium Chloride Flush 0.9% 10 Ml Syringe) 10 ml IVP 0100,0900,1700 [facility] Last Admin: 10/04/20 17:41 Dose: 10 ml Documented by: Sodium Chloride (Sodium Chloride Flush 0.9% 10 Ml Syringe) 10 ml IVP PRN PRN PRN Reason: NEEDED PER PROVIDER ORDERS Last Admin: 10/03/20 20:31 Dose: 10 ml Documented by: Warfarin Sodium (Warfarin 5 Mg Tablet) 5 mg PO QDWARFARIN [facility] Last Admin: 10/04/20 13:40 Dose: Not Given Documented by: Tamsulosin HCl [Flomax] 0.4 mg PO DAILY 03/25/17 Ascorbic Acid [Vitamin C] 250 mg PO DAILY 08/20/20 Losartan Potassium 25 mg PO BID 08/20/20 Magnesium Oxide 420 mg PO DAILY 08/20/20 Senna [Senokot] 1 tab PO BID PRN 08/20/20 Warfarin [Coumadin] 5 mg PO MOWEFR 08/20/20 Warfarin [Coumadin] 7.5 mg PO SUTUTHSA 08/20/20 Acetaminophen [Tylenol] 650 mg PO Q4H PRN 10/04/20 Aspirin EC [Ecotrin] 81 mg PO DAILY 10/04/20 Atorvastatin Calcium [Lipitor] 80 mg PO DAILY 10/04/20 Objective - Vital Signs/Intake & Output Reviewed Vital Signs: Yes Vital Signs: Vital Signs Temp Pulse Pulse Resp BP BP Pulse Ox 10/04/20 07:00 95 15 107/75 10/04/20 06:06 100 10/04/20 06:00 98 16 87/63 L 10/04/20 05:20 106 H 17 10/04/20 05:16 105 H 22 108/83 H 10/04/20 05:15 106 H 19 10/04/20 05:10 107 H 21 10/04/20 05:05 110 H 17 10/04/20 05:01 109 H 19 78/55 L 10/04/20 05:00 37.7 C 108 H 104 H 18 108/83 H 94 10/04/20 04:55 107 H 23 10/04/20 04:50 105 H 20 10/04/20 04:45 106 H 18 10/04/20 04:40 105 H 17 10/04/20 04:35 108 H 21 10/04/20 04:30 105 H 18 10/04/20 04:25 108 H 20 10/04/20 04:20 106 H 19 10/04/20 04:15 107 H 19 10/04/20 04:10 107 H 18 10/04/20 04:07 106 H 17 140/84 H 10/04/20 04:06 108 H 16 10/04/20 04:05 109 H 108 H 18 140/84 H 97 10/04/20 04:01 107 H 20 137/101 H 10/04/20 04:00 108 H 19 10/04/20 03:55 115 H 18 10/04/20 03:50 109 H 18 10/04/20 03:45 110 H 19 10/04/20 03:40 108 H 20 Intake & Output: Intake & Output 10/01/20 10/02/20 10/03/20 10/04/20 23:59 23:59 23:59 23:59 Intake Total 350 Balance 350 - Objective General Appearance: positive: Alert Eyes Bilateral: positive: Normal inspection ENT: positive: Other (BiPAP mask in place.) Respiratory: positive: No respiratory distress, Rhonchi, Other (Tachypnic but not in distress.). negative: Wheezes Cardiovascular: positive: Regular rate & rhythm. negative: Tachycardia, Systolic murmur Abdomen: positive: Non-tender, No distention. negative: Tenderness Skin: positive: Warm, Dry Extremities: positive: No pedal edema - Lab Results Fish Bones: 10/04/20 06:56 10/04/20 06:56 Other Labs: Lab Results x24hrs 10/04/20 10/03/20 10/03/20 Range/Units 06:56 20:00 17:54 WBC (4.8-10.8) x10^3/uL RBC (4.70-6.10) 10^6/uL Hgb (14.0-18.0) g/dL Hct (42.0-52.0) % MCV (80.0-94.0) fL MCH (27.0-31.0) pg MCHC (32.0-36.0) g/dL RDW (12.0-15.0) % Plt Count (130-450) 10^3/uL MPV (7.4-11.4) fL Neut # (Auto) Lymph # (Auto) [place] # (Auto) Eos # (Auto) Baso # (Auto) Absolute Nucleated RBC Total Counted Band Neuts % (Manual) (0 - 10) % Abnorm Lymph % (Manual) % Metamyelocytes % ( - 0) % Nucleated RBC % Neutrophils # (Manual) (1.5-6.6) 10^3/uL Lymphocytes # (Manual) (1.5-3.5) 10^3/uL Monocytes # (Manual) (0.0-1.0) 10^3/uL Eosinophils # (Manual) (0-0.7) 10^3/uL Basophils # (Manual) (0-0.1) 10^3/uL Differential Comment WBC Morphology (NORMAL) Platelet Estimate (NORMAL) Platelet Morphology (NORMAL) RBC Morph Micro Appear (NORMAL) PT (9.9-12.6) secs INR (0.8-1.2) Sodium 138 (135-145) mmol/L Potassium 4.6 (3.5-5.0) mmol/L Chloride 103 (101-111) mmol/L Carbon Dioxide 20 L (21-32) mmol/L Anion Gap 15.0 H (6-13) BUN 44 H (6-20) mg/dL Creatinine 2.3 H (0.6-1.2) mg/dL Estimated GFR (MDRD) 29 L (>89) Glucose 91 (70-100) mg/dL Calcium 7.8 L (8.5-10.3) mg/dL Phosphorus 6.0 H (2.5-4.6) mg/dL Magnesium 1.5 L (1.7-2.8) mg/dL Total Bilirubin 0.5 (0.2-1.0) mg/dL Direct Bilirubin 0.2 (0.1-0.5) mg/dL AST 205 H (10-42) IU/L ALT 74 H (10-60) IU/L Alkaline Phosphatase 49 (42-121) IU/L Troponin I High Sens (2.3-19.7) ng/L B-Natriuretic Peptide 610 H (5-100) pg/mL Total Protein 6.6 L (6.7-8.2) g/dL Albumin 2.8 L (3.2-5.5) g/dL Globulin 3.8 (2.1-4.2) g/dL Albumin/Globulin Ratio (1.0-2.2) Nasal Adenovirus (PCR) Nasal B. parapertussis DNA (PCR) Nasal Coronavir 229E PCR Nasal Coronavir HKU1 PCR Nasal Coronavir NL63 PCR Nasal Coronavir OC43 PCR Nasal Enterovir/Rhinovir PCR Nasal Influenza B PCR Nasal Influenza A PCR Nasal Parainfluen 1 PCR Nasal Parainfluen 2 PCR Nasal Parainfluen 3 PCR Nasal Parainfluen 4 PCR Nasal RSV (PCR) Nasal Screen MRSA (PCR) NEGATIVE (NEGATIVE) Nasal B.pertussis DNA PCR Nasal C.pneumoniae (PCR) Henry Human Metapneumo PCR Nasal M.pneumoniae (PCR) Nasal SARS-CoV-2 (PCR) 10/03/20 10/03/20 10/03/20 Range/Units 17:54 17:54 17:54 WBC (4.8-10.8) x10^3/uL RBC (4.70-6.10) 10^6/uL Hgb (14.0-18.0) g/dL Hct (42.0-52.0) % MCV (80.0-94.0) fL MCH (27.0-31.0) pg MCHC (32.0-36.0) g/dL RDW (12.0-15.0) % Plt Count (130-450) 10^3/uL MPV (7.4-11.4) fL Neut # (Auto) Lymph # (Auto) [place] # (Auto) Eos # (Auto) Baso # (Auto) Absolute Nucleated RBC Total Counted Band Neuts % (Manual) (0 - 10) % Abnorm Lymph % (Manual) % Metamyelocytes % ( - 0) % Nucleated RBC % Neutrophils # (Manual) (1.5-6.6) 10^3/uL Lymphocytes # (Manual) (1.5-3.5) 10^3/uL Monocytes # (Manual) (0.0-1.0) 10^3/uL Eosinophils # (Manual) (0-0.7) 10^3/uL Basophils # (Manual) (0-0.1) 10^3/uL Differential Comment WBC Morphology (NORMAL) Platelet Estimate (NORMAL) Platelet Morphology (NORMAL) RBC Morph Micro Appear (NORMAL) PT 16.0 H (9.9-12.6) secs INR 1.5 H (0.8-1.2) Sodium 136 (135-145) mmol/L Potassium 4.1 (3.5-5.0) mmol/L Chloride 101 (101-111) mmol/L Carbon Dioxide 23 (21-32) mmol/L Anion Gap 12.0 (6-13) BUN 32 H (6-20) mg/dL Creatinine 2.2 H (0.6-1.2) mg/dL Estimated GFR (MDRD) 30 L (>89) Glucose 126 H (70-100) mg/dL Calcium 8.1 L (8.5-10.3) mg/dL Phosphorus (2.5-4.6) mg/dL Magnesium 1.4 L (1.7-2.8) mg/dL Total Bilirubin 0.6 (0.2-1.0) mg/dL Direct Bilirubin (0.1-0.5) mg/dL AST 164 H (10-42) IU/L ALT 46 (10-60) IU/L Alkaline Phosphatase 55 (42-121) IU/L Troponin I High Sens 174.3 H* (2.3-19.7) ng/L B-Natriuretic Peptide (5-100) pg/mL Total Protein 6.7 (6.7-8.2) g/dL Albumin 2.9 L (3.2-5.5) g/dL Globulin 3.8 (2.1-4.2) g/dL Albumin/Globulin Ratio 0.8 L (1.0-2.2) Nasal Adenovirus (PCR) Nasal B. parapertussis DNA (PCR) Nasal Coronavir 229E PCR Nasal Coronavir HKU1 PCR Nasal Coronavir NL63 PCR Nasal Coronavir OC43 PCR Nasal Enterovir/Rhinovir PCR Nasal Influenza B PCR Nasal Influenza A PCR Nasal Parainfluen 1 PCR Nasal Parainfluen 2 PCR Nasal Parainfluen 3 PCR Nasal Parainfluen 4 PCR Nasal RSV (PCR) Nasal Screen MRSA (PCR) (NEGATIVE) Nasal B.pertussis DNA PCR Nasal C.pneumoniae (PCR) Henry Human Metapneumo PCR Nasal M.pneumoniae (PCR) Nasal SARS-CoV-2 (PCR) 10/03/20 10/03/20 Range/Units 17:54 17:42 WBC 5.8 (4.8-10.8) x10^3/uL RBC 5.17 (4.70-6.10) 10^6/uL Hgb 11.3 L (14.0-18.0) g/dL Hct 38.1 L (42.0-52.0) % MCV 73.7 L (80.0-94.0) fL MCH 21.9 L (27.0-31.0) pg MCHC 29.7 L (32.0-36.0) g/dL RDW 23.0 H (12.0-15.0) % Plt Count 146 (130-450) 10^3/uL MPV 9.0 (7.4-11.4) fL Neut # (Auto) Not Reportable Lymph # (Auto) Not Reportable [place] # (Auto) Not Reportable Eos # (Auto) Not Reportable Baso # (Auto) Not Reportable Absolute Nucleated RBC Not Reportable Total Counted 100 Band Neuts % (Manual) 30 H (0 - 10) % Abnorm Lymph % (Manual) 0 % Metamyelocytes % 5 H ( - 0) % Nucleated RBC % Not Reportable Neutrophils # (Manual) 5.0 (1.5-6.6) 10^3/uL Lymphocytes # (Manual) 0.4 L (1.5-3.5) 10^3/uL Monocytes # (Manual) 0.1 (0.0-1.0) 10^3/uL Eosinophils # (Manual) 0.0 (0-0.7) 10^3/uL Basophils # (Manual) 0.0 (0-0.1) 10^3/uL Differential Comment MANUAL DIFFERENTIAL WBC Morphology 1+ VACUOLATION (NORMAL) Platelet Estimate NORMAL (130-450,000) (NORMAL) Platelet Morphology NORMAL APPEARANCE (NORMAL) RBC Morph Micro Appear 1+ OVALOCYTES (NORMAL) PT (9.9-12.6) secs INR (0.8-1.2) Sodium (135-145) mmol/L Potassium (3.5-5.0) mmol/L Chloride (101-111) mmol/L Carbon Dioxide (21-32) mmol/L Anion Gap (6-13) BUN (6-20) mg/dL Creatinine (0.6-1.2) mg/dL Estimated GFR (MDRD) (>89) Glucose (70-100) mg/dL Calcium (8.5-10.3) mg/dL Phosphorus (2.5-4.6) mg/dL Magnesium (1.7-2.8) mg/dL Total Bilirubin (0.2-1.0) mg/dL Direct Bilirubin (0.1-0.5) mg/dL AST (10-42) IU/L ALT (10-60) IU/L Alkaline Phosphatase (42-121) IU/L Troponin I High Sens (2.3-19.7) ng/L B-Natriuretic Peptide (5-100) pg/mL Total Protein (6.7-8.2) g/dL Albumin (3.2-5.5) g/dL Globulin (2.1-4.2) g/dL Albumin/Globulin Ratio (1.0-2.2) Nasal Adenovirus (PCR) NOT DETECTED Nasal B. parapertussis DNA (PCR) NOT DETECTED Nasal Coronavir 229E PCR NOT DETECTED Nasal Coronavir HKU1 PCR NOT DETECTED Nasal Coronavir NL63 PCR NOT DETECTED Nasal Coronavir OC43 PCR NOT DETECTED Nasal Enterovir/Rhinovir PCR NOT DETECTED Nasal Influenza B PCR NOT DETECTED Nasal Influenza A PCR NOT DETECTED Nasal Parainfluen 1 PCR NOT DETECTED Nasal Parainfluen 2 PCR NOT DETECTED Nasal Parainfluen 3 PCR NOT DETECTED Nasal Parainfluen 4 PCR NOT DETECTED Nasal RSV (PCR) NOT DETECTED Nasal Screen MRSA (PCR) (NEGATIVE) Nasal B.pertussis DNA PCR NOT DETECTED Nasal C.pneumoniae (PCR) NOT DETECTED Henry Human Metapneumo PCR NOT DETECTED Nasal M.pneumoniae (PCR) NOT DETECTED Nasal SARS-CoV-2 (PCR) DETECTED A Assessment/Plan - Problem List (1) Acute hypoxemic respiratory failure Impression: He remains on BiPAP with an FiO2 of 100%. There was concerns afternoon that he was declining respiratory standpoint as his sats were in the mid 80s and he was becoming unresponsive. I did speak with his POA, Ivelisse, discussed his critical condition. She understood and once again reiterated that he is a DNR and does not want heroic measures. We did discuss this morning that the DC had a bed available and that we could consider transfer there. We discussed the risks and benefits which included that the DC had pulmonology and infectious disease there. We also discussed that management likely would not change even with transfer. She ultimately decided to defer with regards to the transfer and to keep him here at [facility]. She understands that he is critical and I have told her we will keep her updated on his clinical condition. We will keep him on BiPAP and continue supportive measures and therapy for COVID-19 pneumonia. (2) Pneumonia due to COVID-19 virus Impression: This appears to be the cause of his respiratory failure. We have continued him on azithromycin, ceftriaxone for possible component of bacterial pneumonia. He remains on Decadron and remdesivir. We will monitor his LFTs closely as they were elevated to begin with. Continue BiPAP as mentioned above. Isolation precautions. (3) Elevated troponin Impression: His troponin is elevated at 228. His EKG did not suggest ischemia and we suspect this is likely demand ischemia from his respiratory failure. He is anticoagulated with Coumadin although this is subtherapeutic. He did receive a dose of Lovenox 40 mg today. We will continue on Coumadin continue to trend his troponin. If his troponin rises and his INR remains subtherapeutic then we will start him empirically on heparin drip. We will order an echocardiogram. (4) History of stroke Impression: He has a history of stroke with most recent being earlier this year where he was hospitalized at [facility] in [place]. He has had a decline in his cognition since then. We will continue aspirin and Lipitor. (5) History of transcatheter aortic valve replacement (TAVR) Impression: Stable. We will be ordering an echocardiogram given the elevated troponin. (6) CKD (chronic kidney disease) stage 3, GFR 30-59 ml/min Impression: He does have acute kidney injury on his chronic kidney disease. His creatinine today is 2.3 and his baseline is approximately 1.5. This may be prerenal due to poor oral intake. We are holding off on hydration given his renal function is stable and do not want to put him in fluid overload given he is already quite hypoxic. Hold his home losartan. We will monitor his renal function closely and avoid nephrotoxins. (7) HTN (hypertension), benign Impression: He is currently normotensive. We will hold his losartan given the acute kidney injury.
[2020-10-04 07:38] LABS: ABNORMAL LYMPHS % (MANUAL) 0 %
[2020-10-04] MEDS ORDERED: MAGNESIUM SULFATE 2 GRAM 2 GM/50 ML BAG IV ONE (08:00)
[2020-10-04] MEDS ORDERED: REMDESIVIR 100MG VIAL 200 MG in SODIUM CHLORIDE 0.9% 210 ML IV SCH (08:00)
[2020-10-04] MEDS ORDERED: NON FORMULARY MED (Remdesivir 200 MG) IV ONE (08:00)
[2020-10-04] MEDS ORDERED: REMDESIVIR 100MG VIAL 200 MG in SODIUM CHLORIDE 0.9% 210 ML IV ONE (08:00)
[2020-10-04 08:44] LABS: BAND NEUTROPHILS % (MANUAL) 53 %; LYMPHOCYTES # (MANUAL) 0.4 10^3/uL (1.5-3.5); LYMPHOCYTES % (MANUAL) 7 %; METAMYELOCYTES % (MANUAL) 13 %; MONOCYTES # (MANUAL) 0.3 10^3/uL (0.0-1.0); NEUTROPHILS # (MANUAL) 4.2 10^3/uL (1.5-6.6)
[2020-10-04 08:46] LABS: DIFFERENTIAL COMMENT MANUAL DIFFERENTIAL
[2020-10-04 08:47] LABS: PLATELET ESTIMATE, MANUAL DECREASED (<130,000) (NORMAL); PLATELET MORPHOLOGY NORMAL APPEARANCE (NORMAL)
[2020-10-04] MEDS: DEXAMETHASONE 10 MG/ML VIAL IVP SCH (08:47)
[2020-10-04] MEDS ORDERED: ENOXAPARIN 40 MG/0.4 ML SYRINGE SUBQ SCH (09:00)
[2020-10-04] MEDS: SODIUM CHLORIDE FLUSH 0.9% 10 ML SYRINGE IVP SCH ×3 (10:07→22:46)
[2020-10-04] MEDS: cefTRIAXone 2 GM in SODIUM CHLORIDE 0.9% MINIBAG 100 ML IV SCH (10:07)
[2020-10-04] MEDS: AZITHROMYCIN INJ 500 MG in SODIUM CHLORIDE 0.9% 250 ML IV SCH (11:19)
--- NOTE | 2020-10-04 11:48 | PHARMACY PROGRESS NOTE ---
- Best Possible Medication History Admit Date and Time: 10/03/20 1759 Processed by: Pharmacy Medication History completed: Yes Patient Interview: Pt unable to participate Secondary Source(s): Physician records, Pharmacy records, Insurance records As the person ultimately responsible for medication therapy, providers are able to order a medication from an existing home medication list in [facility] via the "Reconcile Routine" prior to Confirmation of that medication by it support technician. Such practice is discouraged except when the physician, in their clinical judgment, deems that a medical need exists for a medication without regard to previous use.
--- NOTE | 2020-10-04 11:51 | PHARMACY PROGRESS NOTE ---
- Monitoring Goal INR: 2-3 Previous home regime: 7.5 MG Sunday, Sunday, , and Sunday; 5 MG Sunday, Sunday, Sunday Potentially interacting medications: Azithroymycin, Ceftriaxone, dexamethasone Other anticoagulation: Lovenox Risk factors for bleed: Hypertension, Cerebrovascular disease, History of stroke, Heart disease or IA, Renal insufficiency, Age >65 - Recommendations Dosing: Anticoagulation Monitoring 10/04/20 10/03/20 10/03/20 06:56 17:54 17:54 Hgb 11.3 L 11.3 L Hct 38.2 L 38.1 L PT 16.0 H INR 1.5 H Last Dose Given: S&S of bleedin MG daily with daily INR Pharmacy recommendation: Continue current regime (Reducing home dose to 5mg daily)
[2020-10-04] MEDS: WARFARIN 5 MG TABLET PO SCH (13:40)
[2020-10-04] MEDS ORDERED: ATORVASTATIN 40 MG TABLET PO SCH (21:00)
[2020-10-04] MEDS: MORPHINE 2 MG/ML CARPUJECT IVP PRN (22:46)
[2020-10-05 05:34] LABS: BASOPHILS % (AUTO) 0.8 %; EOSINOPHILS % (AUTO) 0.2 %; HCT - HEMATOCRIT 36.6 % (42.0-52.0); LYMPHOCYTES % (AUTO) 3.3 %; MEAN CORPUSCULAR HEMOGLOBIN 22.1 pg (27.0-31.0); MEAN CORPUSCULAR HGB CONC 30.1 g/dL (32.0-36.0); MEAN CORPUSCULAR VOLUME 73.5 fL (80.0-94.0); MONOCYTES % (AUTO) 1.6 %; NEUTROPHILS % (AUTO) 93.5 %; PLT - PLATELET COUNT 175 10^3/uL (130-450); RED BLOOD COUNT 4.98 10^6/uL (4.70-6.10); RED CELL DISTRIBUTION WIDTH 23.3 % (12.0-15.0); WHITE BLOOD COUNT 11.9 x10^3/uL (4.8-10.8)
[2020-10-05 05:35] LABS: INR 1.9 (0.8-1.2); PT - PROTHROMBIN TIME 20.3 secs (9.9-12.6)
[2020-10-05 05:40] LABS: ABNORMAL LYMPHS % (MANUAL) 0 %
[2020-10-05 05:47] LABS: BILIRUBIN,DIRECT 0.2 mg/dL (0.1-0.5); BILIRUBIN,TOTAL 0.9 mg/dL (0.2-1.0); CALCIUM 7.5 mg/dL (8.5-10.3); CREATININE 3.4 mg/dL (0.6-1.2); MAGNESIUM 2.3 mg/dL (1.7-2.8); PHOSPHORUS 6.9 mg/dL (2.5-4.6); POTASSIUM 4.7 mmol/L (3.5-5.0); TOTAL PROTEIN 7.1 g/dL (6.7-8.2)
[2020-10-05 06:23] LABS: BAND NEUTROPHILS % (MANUAL) 1 %; LYMPHOCYTES # (MANUAL) 0.5 10^3/uL (1.5-3.5); LYMPHOCYTES % (MANUAL) 4 %; METAMYELOCYTES % (MANUAL) 5 %; MONOCYTES # (MANUAL) 0.4 10^3/uL (0.0-1.0); NEUTROPHILS # (MANUAL) 10.5 10^3/uL (1.5-6.6)
[2020-10-05 06:25] LABS: PLATELET ESTIMATE, MANUAL NORMAL (130-450,000) (NORMAL); PLATELET MORPHOLOGY NORMAL APPEARANCE (NORMAL); WBC MORPHOLOGY (MULTIPLE) NORMAL APPEARANCE (NORMAL)
[2020-10-05 06:26] LABS: DIFFERENTIAL COMMENT MANUAL DIFFERENTIAL
[2020-10-05] MEDS ORDERED: SODIUM CHLORIDE 0.9% 1,000 ML IV SCH (08:00)
--- NOTE | 2020-10-05 08:01 | PROVIDER PROGRESS NOTE ---
Subjective - Prog Note Date Prog Note Date: 10/05/20 - Subjective Subjective: Pt is awake but minimally communicative, eyes open, trying to follow commands and to swallow, but not speaking (has on BIPAP mask) Objective - Vital Signs/Intake & Output Reviewed Vital Signs: Yes Vital Signs: Vital Signs Temp Pulse Pulse Resp BP BP Pulse Ox 10/05/20 07:00 99 18 104/78 10/05/20 06:00 99 17 119/44 L 83 L 10/05/20 05:15 101 H 17 10/05/20 05:10 100 15 10/05/20 05:05 99 16 10/05/20 05:01 102 H 30 H 122/61 10/05/20 05:00 36.8 C 100 100 17 122/61 84 L 10/05/20 04:55 103 H 18 10/05/20 04:50 103 H 18 10/05/20 04:45 98 17 10/05/20 04:40 104 H 18 10/05/20 04:35 100 18 10/05/20 04:30 99 17 10/05/20 04:25 99 15 10/05/20 04:20 102 H 18 10/05/20 04:15 100 18 10/05/20 04:10 102 H 19 10/05/20 04:05 101 H 20 10/05/20 04:01 99 19 112/71 10/05/20 04:00 101 H 99 18 112/71 98 Intake & Output: Intake & Output 10/02/20 10/03/20 10/04/20 10/05/20 23:59 23:59 23:59 23:59 Intake Total 350 890 Output Total 520 Balance 350 890 -520 - Objective General Appearance: positive: Lethargic Eyes Bilateral: positive: Other (Lids closed) ENT: positive: Other (S[place]en, is on BIPAP, asleep) Neck: positive: Nml inspection Respiratory: positive: Other (On BIPAP) Cardiovascular: positive: Regular rate & rhythm, No murmur Abdomen: positive: No distention (Soft) Skin: positive: Warm, Dry Neurologic/Psychiatric: positive: Weakness, Other (Not responding to name, flinches to sternal rub) - Lab Results Fish Bones: 10/06/20 08:30 10/06/20 08:30 Other Labs: Lab Results x24hrs 07/13/21 07/13/21 07/13/21 Range/Units 04:55 04:55 04:55 WBC 11.9 H (4.8-10.8) x10^3/uL RBC 4.98 (4.70-6.10) 10^6/uL Hgb 11.0 L (14.0-18.0) g/dL Hct 36.6 L (42.0-52.0) % MCV 73.5 L (80.0-94.0) fL MCH 22.1 L (27.0-31.0) pg MCHC 30.1 L (32.0-36.0) g/dL RDW 23.3 H (12.0-15.0) % Plt Count 175 (130-450) 10^3/uL Neut # (Auto) Not Reportable Lymph # (Auto) Not Reportable Carroll # (Auto) Not Reportable Eos # (Auto) Not Reportable Baso # (Auto) Not Reportable Absolute Nucleated RBC Not Reportable Total Counted 100 Band Neuts % (Manual) 1 (0 - 10) % Abnorm Lymph % (Manual) 0 % Metamyelocytes % 5 H ( - 0) % Nucleated RBC % Not Reportable Neutrophils # (Manual) 10.5 H (1.5-6.6) 10^3/uL Lymphocytes # (Manual) 0.5 L (1.5-3.5) 10^3/uL Monocytes # (Manual) 0.4 (0.0-1.0) 10^3/uL Eosinophils # (Manual) 0.0 (0-0.7) 10^3/uL Basophils # (Manual) 0.0 (0-0.1) 10^3/uL Differential Comment MANUAL DIFFERENTIAL WBC Morphology NORMAL APPEARANCE (NORMAL) Platelet Estimate NORMAL (130-450,000) (NORMAL) Platelet Morphology NORMAL APPEARANCE (NORMAL) RBC Morph Micro Appear 1+ HYPOCHROMASIA (NORMAL) PT 20.3 H (9.9-12.6) secs INR 1.9 H (0.8-1.2) Sodium 140 (135-145) mmol/L Potassium 4.7 (3.5-5.0) mmol/L Chloride 104 (101-111) mmol/L Carbon Dioxide 20 L (21-32) mmol/L Anion Gap 16.0 H (6-13) BUN 67 H (6-20) mg/dL Creatinine 3.4 H (0.6-1.2) mg/dL Estimated GFR (MDRD) 18 L (>89) Glucose 115 H (70-100) mg/dL Calcium 7.5 L (8.5-10.3) mg/dL Phosphorus 6.9 H (2.5-4.6) mg/dL Magnesium 2.3 (1.7-2.8) mg/dL Total Bilirubin 0.9 (0.2-1.0) mg/dL Direct Bilirubin 0.2 (0.1-0.5) mg/dL AST 150 H (10-42) IU/L ALT 64 H (10-60) IU/L Alkaline Phosphatase 63 (42-121) IU/L Troponin I High Sens (2.3-19.7) ng/L B-Natriuretic Peptide (5-100) pg/mL Total Protein 7.1 (6.7-8.2) g/dL Albumin 3.0 L (3.2-5.5) g/dL Globulin 4.1 (2.1-4.2) g/dL 10/04/20 10/04/20 10/04/20 Range/Units 18:45 06:57 06:57 WBC (4.8-10.8) x10^3/uL RBC (4.70-6.10) 10^6/uL Hgb (14.0-18.0) g/dL Hct (42.0-52.0) % MCV (80.0-94.0) fL MCH (27.0-31.0) pg MCHC (32.0-36.0) g/dL RDW (12.0-15.0) % Plt Count (130-450) 10^3/uL Neut # (Auto) Lymph # (Auto) Carroll # (Auto) Eos # (Auto) Baso # (Auto) Absolute Nucleated RBC Total Counted Band Neuts % (Manual) (0 - 10) % Abnorm Lymph % (Manual) % Metamyelocytes % ( - 0) % Nucleated RBC % Neutrophils # (Manual) (1.5-6.6) 10^3/uL Lymphocytes # (Manual) (1.5-3.5) 10^3/uL Monocytes # (Manual) (0.0-1.0) 10^3/uL Eosinophils # (Manual) (0-0.7) 10^3/uL Basophils # (Manual) (0-0.1) 10^3/uL Differential Comment WBC Morphology (NORMAL) Platelet Estimate (NORMAL) Platelet Morphology (NORMAL) RBC Morph Micro Appear (NORMAL) PT (9.9-12.6) secs INR (0.8-1.2) Sodium (135-145) mmol/L Potassium (3.5-5.0) mmol/L Chloride (101-111) mmol/L Carbon Dioxide (21-32) mmol/L Anion Gap (6-13) BUN (6-20) mg/dL Creatinine (0.6-1.2) mg/dL Estimated GFR (MDRD) (>89) Glucose (70-100) mg/dL Calcium (8.5-10.3) mg/dL Phosphorus (2.5-4.6) mg/dL Magnesium (1.7-2.8) mg/dL Total Bilirubin (0.2-1.0) mg/dL Direct Bilirubin (0.1-0.5) mg/dL AST (10-42) IU/L ALT (10-60) IU/L Alkaline Phosphatase (42-121) IU/L Troponin I High Sens 202.3 H* 228.7 H* (2.3-19.7) ng/L B-Natriuretic Peptide 326 H (5-100) pg/mL Total Protein (6.7-8.2) g/dL Albumin (3.2-5.5) g/dL Globulin (2.1-4.2) g/dL 10/04/20 Range/Units 06:56 WBC (4.8-10.8) x10^3/uL RBC (4.70-6.10) 10^6/uL Hgb (14.0-18.0) g/dL Hct (42.0-52.0) % MCV (80.0-94.0) fL MCH (27.0-31.0) pg MCHC (32.0-36.0) g/dL RDW (12.0-15.0) % Plt Count (130-450) 10^3/uL Neut # (Auto) Not Reportable Lymph # (Auto) Not Reportable Carroll # (Auto) Not Reportable Eos # (Auto) Not Reportable Baso # (Auto) Not Reportable Absolute Nucleated RBC Not Reportable Total Counted 100 Band Neuts % (Manual) 53 H (0 - 10) % Abnorm Lymph % (Manual) 0 % Metamyelocytes % 13 H ( - 0) % Nucleated RBC % Not Reportable Neutrophils # (Manual) 4.2 (1.5-6.6) 10^3/uL Lymphocytes # (Manual) 0.4 L (1.5-3.5) 10^3/uL Monocytes # (Manual) 0.3 (0.0-1.0) 10^3/uL Eosinophils # (Manual) 0.0 (0-0.7) 10^3/uL Basophils # (Manual) 0.0 (0-0.1) 10^3/uL Differential Comment MANUAL DIFFERENTIAL WBC Morphology (NORMAL) Platelet Estimate DECREASED (<130,000) (NORMAL) Platelet Morphology NORMAL APPEARANCE (NORMAL) RBC Morph Micro Appear 1+ HYPOCHROMASIA (NORMAL) PT (9.9-12.6) secs INR (0.8-1.2) Sodium (135-145) mmol/L Potassium (3.5-5.0) mmol/L Chloride (101-111) mmol/L Carbon Dioxide (21-32) mmol/L Anion Gap (6-13) BUN (6-20) mg/dL Creatinine (0.6-1.2) mg/dL Estimated GFR (MDRD) (>89) Glucose (70-100) mg/dL Calcium (8.5-10.3) mg/dL Phosphorus (2.5-4.6) mg/dL Magnesium (1.7-2.8) mg/dL Total Bilirubin (0.2-1.0) mg/dL Direct Bilirubin (0.1-0.5) mg/dL AST (10-42) IU/L ALT (10-60) IU/L Alkaline Phosphatase (42-121) IU/L Troponin I High Sens (2.3-19.7) ng/L B-Natriuretic Peptide (5-100) pg/mL Total Protein (6.7-8.2) g/dL Albumin (3.2-5.5) g/dL Globulin (2.1-4.2) g/dL - Other Results/Comments Other Results/Comments: EKG done today (I interpreted): Sinus tachycardia, rate 101, early R/S transition, inferior infarct, old. Since 10/03/2020 the EKG is similar. Since 08/20/2020, lateral T wave abnormalities have improved. Assessment/Plan - Problem List (1) Acute hypoxemic respiratory failure Impression: This patient was vehement about not being put on a ventilator. He is getting maximum support on BiPAP with FiO2 100%. ABG has been difficult to obtain to assess his ventilation, pH, etc. Continue with BiPAP support and continue in the ICU (2) Pneumonia due to COVID-19 virus Impression: He is scheduled to get remdesivir daily, is getting Decadron since admission and empiric antibiotics for CAP. He continues to need maximum supplemental oxygen. He is also very weak, per RN, unable to perform a swallow from a cup or with straw. I called the POA (his stepdaughter) today and updated her on his continued critical status. (3) Acute on chronic kidney failure Impression: He was not getting IV fluids because of the BNP in the 600s and concerned that part of the hypoxia was from CHF, given his history of prior [place]. Today the BUN/creatinine has increased substantially and will start IV fluids. Avoid nephrotoxins. Follow BMP daily. He is not a candidate for transfer to Nephrology or for dialysis, based on his stated wishes. (4) Elevated troponin Impression: As above, the troponins have been elevated but "flat" suggesting CHF, or may be up from CKD. EKG was done today and showed no signif change from several days ago. Echo was done today and showed LVEF 45-50%. Per the old records from [facility], his last known LV EF was 40%. Will try iv fluids, for the ERMA, since he is not is florid CHF. (5) History of transcatheter aortic valve replacement (TAVR) Impression: As per Hx. The TAVR is functioning normally by Echo exam, done today. (6) Antiphospholipid syndrome Impression: His [facility] summary was reviewed, obtained from [facility]. Also, the DPOA, his step-daughter, who is an RN gave me information. The reason he is on Coumadin is for Hx of antiphospholipid syndrome, vascular surgery recommendations after a previously dissected subclavian artery was repaired there several mos ago, and Hx of recurrent sriram;ateral embolic strokes. (It is not for post-TAVR management or any Afib Hx). Since he is unable to swallow and got no aspirin or Coumadin today, we will start IV heparin drip, no Heparin bolus because the INR is still close to ther apeutic at 1.9. (7) History of stroke with residual deficit Impression: As above, documented in the [facility] summary from [facility] (8) HTN (hypertension), benign Impression: Hx of HTN. Here he has "soft" BPs probably from no iv fluids. (9) ROLANDO (renal artery stenosis) Impression: As per the [facility] summary records from [facility]. This is undoubtedly adding to the ERMA on top of CKD. (10) Dissection of left subclavian artery Impression: As per the [facility] summary from [facility]. Also, since he is unable to swallow and got no aspirin or Coumadin today, we will start IV heparin drip, no Heparin bolus because the INR is still close to therapeutic at 1.9. (11) Hx of deep venous thrombosis Impression: As per Hx. Since he is unable to swallow and got no aspirin or Coumadin today, we will start IV heparin drip, no Heparin bolus because the INR is still close to therapeutic at 1.9. (12) Vocal cord paralysis Impression: From the records from [facility].
[2020-10-05] MEDS: DEXAMETHASONE 10 MG/ML VIAL IVP SCH (08:51)
[2020-10-05] MEDS ORDERED: REMDESIVIR 100MG VIAL 100 MG in SODIUM CHLORIDE 0.9% 100ML 100 ML IV SCH (09:00)
[2020-10-05] MEDS ORDERED: ASPIRIN EC 81 MG TABLET PO SCH (09:00)
[2020-10-05] MEDS ORDERED: REMDESIVIR IV SCH (09:00)
[2020-10-05] MEDS ORDERED: SODIUM CHLORIDE 0.9% IV SCH (09:00)
[2020-10-05] MEDS: cefTRIAXone 2 GM in SODIUM CHLORIDE 0.9% MINIBAG 100 ML IV SCH (09:49)
[2020-10-05] MEDS: SODIUM CHLORIDE FLUSH 0.9% 10 ML SYRINGE IVP SCH ×2 (10:14→19:21)
[2020-10-05] MEDS: AZITHROMYCIN INJ 500 MG in SODIUM CHLORIDE 0.9% 250 ML IV SCH (10:39)
[2020-10-05] MEDS: WARFARIN 5 MG TABLET PO SCH (15:44)
[2020-10-05] MEDS ORDERED: SODIUM CHLORIDE 0.9% 1,000 ML IV ONE (18:30)
[2020-10-05 18:46] LABS: HCT - HEMATOCRIT 32.6 % (42.0-52.0); HGB - HEMOGLOBIN 9.6 g/dL (14.0-18.0); MEAN CORPUSCULAR HEMOGLOBIN 22.5 pg (27.0-31.0); MEAN CORPUSCULAR HGB CONC 29.4 g/dL (32.0-36.0); MEAN CORPUSCULAR VOLUME 76.3 fL (80.0-94.0); MEAN PLATELET VOLUME 9.7 fL (7.4-11.4); RED BLOOD COUNT 4.27 10^6/uL (4.70-6.10); RED CELL DISTRIBUTION WIDTH 23.7 % (12.0-15.0); WHITE BLOOD COUNT 12.3 x10^3/uL (4.8-10.8)
[2020-10-05] MEDS ORDERED: HEPARIN 25000UNITS/500ML (D5W) 25,000 UNIT/500 ML BAG IV SCH (19:00)
[2020-10-05 19:13] LABS: CALCIUM 7.2 mg/dL (8.5-10.3); CREATININE 4.6 mg/dL (0.6-1.2); POTASSIUM 5.8 mmol/L (3.5-5.0)
[2020-10-05] MEDS: SODIUM CHLORIDE 0.9% 1,000 ML IV SCH ×2 (19:20→20:34)
[2020-10-06] MEDS: SODIUM CHLORIDE FLUSH 0.9% 10 ML SYRINGE IVP SCH ×2 (02:20→10:33)
[2020-10-06] MEDS: SODIUM CHLORIDE 0.9% 1,000 ML IV SCH (04:58)
[2020-10-06 05:57] LABS: PT - PROTHROMBIN TIME 20.9 secs (9.9-12.6)
[2020-10-06 07:19] LABS: ALBUMIN 2.4 g/dL (3.2-5.5); BILIRUBIN,DIRECT 0.1 mg/dL (0.1-0.5); BILIRUBIN,TOTAL 0.4 mg/dL (0.2-1.0); PHOSPHORUS 9.3 mg/dL (2.5-4.6); TOTAL PROTEIN 6.2 g/dL (6.7-8.2)
[2020-10-06 07:24] LABS: POTASSIUM 6.3 mmol/L (3.5-5.0)
[2020-10-06] MEDS ORDERED: DEXTROSE 50% ABBOJECT 25 GM/50 ML SYRINGE IVP ONE (08:00)
[2020-10-06] MEDS ORDERED: INSULIN REGULAR HUMAN 300 UNIT/3 ML VIAL IVP ONE (08:00)
[2020-10-06 08:43] LABS: BASOPHILS % (AUTO) 0.2 %; EOSINOPHILS % (AUTO) 0.1 %; HCT - HEMATOCRIT 32.9 % (42.0-52.0); HGB - HEMOGLOBIN 9.4 g/dL (14.0-18.0); LYMPHOCYTES % (AUTO) 2.6 %; MEAN CORPUSCULAR HEMOGLOBIN 21.9 pg (27.0-31.0); MEAN CORPUSCULAR HGB CONC 28.6 g/dL (32.0-36.0); MEAN CORPUSCULAR VOLUME 76.7 fL (80.0-94.0); MEAN PLATELET VOLUME 10.2 fL (7.4-11.4); MONOCYTES % (AUTO) 0.9 %; NEUTROPHILS % (AUTO) 94.9 %; PLT - PLATELET COUNT 155 10^3/uL (130-450); RED BLOOD COUNT 4.29 10^6/uL (4.70-6.10); WHITE BLOOD COUNT 8.8 x10^3/uL (4.8-10.8)
[2020-10-06 08:48] LABS: ABNORMAL LYMPHS % (MANUAL) 0 %
[2020-10-06 08:54] LABS: CALCIUM 6.9 mg/dL (8.5-10.3); CREATININE 4.9 mg/dL (0.6-1.2)
[2020-10-06 09:01] LABS: BAND NEUTROPHILS % (MANUAL) 12 %; LYMPHOCYTES # (MANUAL) 0.4 10^3/uL (1.5-3.5); LYMPHOCYTES % (MANUAL) 5 %; MONOCYTES # (MANUAL) 0.1 10^3/uL (0.0-1.0); NEUTROPHILS # (MANUAL) 8.3 10^3/uL (1.5-6.6)
[2020-10-06 09:02] LABS: DIFFERENTIAL COMMENT MANUAL DIFFERENTIAL; RBC MORPHOLOGY (MULTIPLE) 4+ ANISOCYTOSIS (NORMAL)
[2020-10-06] MEDS: DEXAMETHASONE 10 MG/ML VIAL IVP SCH (09:20)
[2020-10-06] MEDS: cefTRIAXone 2 GM in SODIUM CHLORIDE 0.9% MINIBAG 100 ML IV SCH (09:22)
--- NOTE | 2020-10-06 09:38 | XRAY Report ---
PROCEDURE: Chest for Line Placement INDICATIONS: verification of NG tube TECHNIQUE: One view of the chest was acquired. COMPARISON: 10/03/2020 FINDINGS: Surgical changes and devices: Aortic valve is again seen. Left-sided vascular stent is again noted. S urgical clips are seen in left axilla. NG tube is not identified on this study suggests clinical jace elation and repositioning.. Lungs and pleura: Hazy opacities are noted in left no axillary lung field. Patchy opacity is also see n in right lower lung field. Trace right pleural effusion is likely present. No gross pneumothorax. Mediastinum: Mediastinal contours appear normal. Heart size is enlarged. Bones and chest wall: No suspicious bony lesions. Overlying soft tissues appear unremarkable. IMPRESSION: NG tube is not visualized on this study suggest clinical correlation and repositioning. Ill-defined airspace opacities scattered in bilateral mid to lower lung garcia more prominent on the left side concerning for pulmonary infiltrate/atelectasis. No gross pneumothorax. Reviewed by: Homer Carey MD on 10/06/2020 9:37 AM PDT Approved by: Homer Carey MD on 10/06/2020 9:37 AM PDT Station ID: [id number]
[2020-10-06] MEDS: AZITHROMYCIN INJ 500 MG in SODIUM CHLORIDE 0.9% 250 ML IV SCH (10:26)
--- NOTE | 2020-10-06 11:34 | XRAY Report ---
PROCEDURE: Chest for Line Placement INDICATIONS: verification of NG tube placement TECHNIQUE: One view of the chest was acquired. COMPARISON: Earlier study from the same day. FINDINGS: Surgical changes and devices: NG tube is seen coiled within patient's mouth, the tip is in the region of most upper esophagus at the level of sternoclavicular joint. Prosthetic heart valve and left-side d vascular stent are again seen and unchanged. Lungs and pleura: No significant pleural effusions or pneumothorax. Hazy airspace opacities are agai n seen in bilateral mid to lower lung garcia. Mediastinum: Mediastinal contours appear normal. Heart size is normal. Bones and chest wall: No suspicious bony lesions. Overlying soft tissues appear unremarkable. IMPRESSION: NG tube is coiled within patient's mouth, the tip is in upper esophagus and should be pulled out and repositioned. Persistent bilateral airspace opacities. No pneumothorax. Reviewed by: Homer Carey MD on 10/06/2020 11:33 AM PDT Approved by: Homer Carey MD on 10/06/2020 11:33 AM PDT Station ID: [id number]
[2020-10-06] MEDS ORDERED: GLYCOPYRROLATE 1 MG/5 ML VIAL SUBQ PRN (12:22)
[2020-10-06] MEDS ORDERED: ATROPINE 1% OPHTH DROPS 2 ML SL PRN (12:22)
[2020-10-06] MEDS ORDERED: HALOPERIDOL 5 MG/ML VIAL IVP PRN (12:22)
[2020-10-06] MEDS ORDERED: SCOPOLAMINE PATCH TOP SCH (13:00)
[2020-10-06 15:37] VITALS: BP 128/72
--- NOTE | 2020-10-06 15:53 | PROVIDER PROGRESS NOTE ---
Subjective - Subjective Pt reports feeling: Worse (Not answering, not following commands, just sleeping) Objective - Vital Signs/Intake & Output Reviewed Vital Signs: Yes Vital Signs: Vital Signs Temp Pulse Pulse Resp BP Pulse Ox 10/06/20 15:00 97 15 128/72 93 10/06/20 13:15 100 10/06/20 13:00 84 15 116/70 94 10/06/20 12:00 36.7 C 94 16 108/75 100 Intake & Output: Intake & Output 10/03/20 10/04/20 10/05/20 10/06/20 23:59 23:59 23:59 23:59 Intake Total 418 775 6040.167 2365.067 Output Total 605 82 Balance 856 549 6450.167 2283.067 - Objective General Appearance: positive: Lethargic, Other (comatose) Eyes Bilateral: positive: Other (eyes closed) ENT: positive: Other (Large guzman, wearing BIPAP mask) Neck: positive: Nml inspection Respiratory: positive: No respiratory distress (wearing BIPAP mask) Cardiovascular: positive: Regular rate & rhythm Abdomen: positive: No distention Skin: positive: Warm, Dry, Other (Feet are cool and pale) Extremities: positive: No pedal edema Neurologic/Psychiatric: positive: Other (Comatose, no DTRs) - Lab Results Fish Bones: 10/06/20 08:30 10/06/20 08:30 Other Labs: Lab Results x24hrs 10/06/20 10/06/20 10/06/20 Range/Units 08:30 08:30 08:30 WBC (4.8-10.8) x10^3/uL RBC (4.70-6.10) 10^6/uL Hgb (14.0-18.0) g/dL Hct (42.0-52.0) % MCV (80.0-94.0) fL MCH (27.0-31.0) pg MCHC (32.0-36.0) g/dL RDW (12.0-15.0) % Plt Count (130-450) 10^3/uL MPV (7.4-11.4) fL Neut # (Auto) Lymph # (Auto) Lamar # (Auto) Eos # (Auto) Baso # (Auto) Absolute Nucleated RBC Total Counted Band Neuts % (Manual) (0 - 10) % Abnorm Lymph % (Manual) % Nucleated RBC % Neutrophils # (Manual) (1.5-6.6) 10^3/uL Lymphocytes # (Manual) (1.5-3.5) 10^3/uL Monocytes # (Manual) (0.0-1.0) 10^3/uL Eosinophils # (Manual) (0-0.7) 10^3/uL Basophils # (Manual) (0-0.1) 10^3/uL Differential Comment RBC Morph Micro Appear (NORMAL) PT (9.9-12.6) secs INR (0.8-1.2) Anti-Xa Level 0.9 H ( - 0.7) U/mL Sodium 140 (135-145) mmol/L Potassium 6.0 H* (3.5-5.0) mmol/L Chloride 106 (101-111) mmol/L Carbon Dioxide 20 L (21-32) mmol/L Anion Gap 14.0 H (6-13) BUN 90 H* (6-20) mg/dL Creatinine 4.9 H (0.6-1.2) mg/dL Estimated GFR (MDRD) 12 L (>89) Glucose 232 H (70-100) mg/dL Lactic Acid (0.5-2.2) mmol/L Calcium 6.9 L (8.5-10.3) mg/dL Phosphorus (2.5-4.6) mg/dL Total Bilirubin (0.2-1.0) mg/dL Direct Bilirubin (0.1-0.5) mg/dL AST (10-42) IU/L ALT (10-60) IU/L Alkaline Phosphatase (42-121) IU/L Troponin I High Sens 895.2 H* (2.3-19.7) ng/L B-Natriuretic Peptide (5-100) pg/mL Total Protein (6.7-8.2) g/dL Albumin (3.2-5.5) g/dL Globulin (2.1-4.2) g/dL 10/06/20 10/06/20 10/06/20 Range/Units 08:30 05:15 05:15 WBC 8.8 (4.8-10.8) x10^3/uL RBC 4.29 L (4.70-6.10) 10^6/uL Hgb 9.4 L (14.0-18.0) g/dL Hct 32.9 L (42.0-52.0) % MCV 76.7 L (80.0-94.0) fL MCH 21.9 L (27.0-31.0) pg MCHC 28.6 L (32.0-36.0) g/dL RDW 24.0 H (12.0-15.0) % Plt Count 155 (130-450) 10^3/uL MPV 10.2 (7.4-11.4) fL Neut # (Auto) Not Reportable Lymph # (Auto) Not Reportable Lamar # (Auto) Not Reportable Eos # (Auto) Not Reportable Baso # (Auto) Not Reportable Absolute Nucleated RBC Not Reportable Total Counted 100 Band Neuts % (Manual) 12 H (0 - 10) % Abnorm Lymph % (Manual) 0 % Nucleated RBC % Not Reportable Neutrophils # (Manual) 8.3 H (1.5-6.6) 10^3/uL Lymphocytes # (Manual) 0.4 L (1.5-3.5) 10^3/uL Monocytes # (Manual) 0.1 (0.0-1.0) 10^3/uL Eosinophils # (Manual) 0.0 (0-0.7) 10^3/uL Basophils # (Manual) 0.0 (0-0.1) 10^3/uL Differential Comment MANUAL DIFFERENTIAL RBC Morph Micro Appear 4+ ANISOCYTOSIS (NORMAL) PT 20.9 H (9.9-12.6) secs INR 2.0 H (0.8-1.2) Anti-Xa Level ( - 0.7) U/mL Sodium (135-145) mmol/L Potassium (3.5-5.0) mmol/L Chloride (101-111) mmol/L Carbon Dioxide (21-32) mmol/L Anion Gap (6-13) BUN (6-20) mg/dL Creatinine (0.6-1.2) mg/dL Estimated GFR (MDRD) (>89) Glucose (70-100) mg/dL Lactic Acid (0.5-2.2) mmol/L Calcium (8.5-10.3) mg/dL Phosphorus (2.5-4.6) mg/dL Total Bilirubin (0.2-1.0) mg/dL Direct Bilirubin (0.1-0.5) mg/dL AST (10-42) IU/L ALT (10-60) IU/L Alkaline Phosphatase (42-121) IU/L Troponin I High Sens (2.3-19.7) ng/L B-Natriuretic Peptide 340 H (5-100) pg/mL Total Protein (6.7-8.2) g/dL Albumin (3.2-5.5) g/dL Globulin (2.1-4.2) g/dL 10/06/20 10/06/20 10/05/20 Range/Units 05:15 01:05 18:36 WBC (4.8-10.8) x10^3/uL RBC (4.70-6.10) 10^6/uL Hgb (14.0-18.0) g/dL Hct (42.0-52.0) % MCV (80.0-94.0) fL MCH (27.0-31.0) pg MCHC (32.0-36.0) g/dL RDW (12.0-15.0) % Plt Count (130-450) 10^3/uL MPV (7.4-11.4) fL Neut # (Auto) Lymph # (Auto) Lamar # (Auto) Eos # (Auto) Baso # (Auto) Absolute Nucleated RBC Total Counted Band Neuts % (Manual) (0 - 10) % Abnorm Lymph % (Manual) % Nucleated RBC % Neutrophils # (Manual) (1.5-6.6) 10^3/uL Lymphocytes # (Manual) (1.5-3.5) 10^3/uL Monocytes # (Manual) (0.0-1.0) 10^3/uL Eosinophils # (Manual) (0-0.7) 10^3/uL Basophils # (Manual) (0-0.1) 10^3/uL Differential Comment RBC Morph Micro Appear (NORMAL) PT (9.9-12.6) secs INR (0.8-1.2) Anti-Xa Level 0.5 ( - 0.7) U/mL Sodium 142 140 (135-145) mmol/L Potassium 6.3 H* 5.8 H (3.5-5.0) mmol/L Chloride 106 106 (101-111) mmol/L Carbon Dioxide 22 24 (21-32) mmol/L Anion Gap 14.0 H 10.0 (6-13) BUN 85 H* 81 H* (6-20) mg/dL Creatinine 5.0 H 4.6 H (0.6-1.2) mg/dL Estimated GFR (MDRD) 12 L 13 L (>89) Glucose 113 H 160 H (70-100) mg/dL Lactic Acid (0.5-2.2) mmol/L Calcium 7.0 L 7.2 L (8.5-10.3) mg/dL Phosphorus 9.3 H (2.5-4.6) mg/dL Total Bilirubin 0.4 (0.2-1.0) mg/dL Direct Bilirubin 0.1 (0.1-0.5) mg/dL AST 101 H (10-42) IU/L ALT 49 (10-60) IU/L Alkaline Phosphatase 59 (42-121) IU/L Troponin I High Sens (2.3-19.7) ng/L B-Natriuretic Peptide (5-100) pg/mL Total Protein 6.2 L (6.7-8.2) g/dL Albumin 2.4 L (3.2-5.5) g/dL Globulin 3.8 (2.1-4.2) g/dL 10/05/20 10/05/20 10/05/20 Range/Units 18:36 18:36 18:36 WBC 12.3 H (4.8-10.8) x10^3/uL RBC 4.27 L (4.70-6.10) 10^6/uL Hgb 9.6 L (14.0-18.0) g/dL Hct 32.6 L (42.0-52.0) % MCV 76.3 L (80.0-94.0) fL MCH 22.5 L (27.0-31.0) pg MCHC 29.4 L (32.0-36.0) g/dL RDW 23.7 H (12.0-15.0) % Plt Count 180 (130-450) 10^3/uL MPV 9.7 (7.4-11.4) fL Neut # (Auto) Lymph # (Auto) Lamar # (Auto) Eos # (Auto) Baso # (Auto) Absolute Nucleated RBC Total Counted Band Neuts % (Manual) (0 - 10) % Abnorm Lymph % (Manual) % Nucleated RBC % Neutrophils # (Manual) (1.5-6.6) 10^3/uL Lymphocytes # (Manual) (1.5-3.5) 10^3/uL Monocytes # (Manual) (0.0-1.0) 10^3/uL Eosinophils # (Manual) (0-0.7) 10^3/uL Basophils # (Manual) (0-0.1) 10^3/uL Differential Comment RBC Morph Micro Appear (NORMAL) PT (9.9-12.6) secs INR (0.8-1.2) Anti-Xa Level 0.0 ( - 0.7) U/mL Sodium (135-145) mmol/L Potassium (3.5-5.0) mmol/L Chloride (101-111) mmol/L Carbon Dioxide (21-32) mmol/L Anion Gap (6-13) BUN (6-20) mg/dL Creatinine (0.6-1.2) mg/dL Estimated GFR (MDRD) (>89) Glucose (70-100) mg/dL Lactic Acid (0.5-2.2) mmol/L Calcium (8.5-10.3) mg/dL Phosphorus (2.5-4.6) mg/dL Total Bilirubin (0.2-1.0) mg/dL Direct Bilirubin (0.1-0.5) mg/dL AST (10-42) IU/L ALT (10-60) IU/L Alkaline Phosphatase (42-121) IU/L Troponin I High Sens 170.1 H* (2.3-19.7) ng/L B-Natriuretic Peptide (5-100) pg/mL Total Protein (6.7-8.2) g/dL Albumin (3.2-5.5) g/dL Globulin (2.1-4.2) g/dL 10/05/20 10/05/20 Range/Units 18:36 16:15 WBC (4.8-10.8) x10^3/uL RBC (4.70-6.10) 10^6/uL Hgb (14.0-18.0) g/dL Hct (42.0-52.0) % MCV (80.0-94.0) fL MCH (27.0-31.0) pg MCHC (32.0-36.0) g/dL RDW (12.0-15.0) % Plt Count (130-450) 10^3/uL MPV (7.4-11.4) fL Neut # (Auto) Lymph # (Auto) Lamar # (Auto) Eos # (Auto) Baso # (Auto) Absolute Nucleated RBC Total Counted Band Neuts % (Manual) (0 - 10) % Abnorm Lymph % (Manual) % Nucleated RBC % Neutrophils # (Manual) (1.5-6.6) 10^3/uL Lymphocytes # (Manual) (1.5-3.5) 10^3/uL Monocytes # (Manual) (0.0-1.0) 10^3/uL Eosinophils # (Manual) (0-0.7) 10^3/uL Basophils # (Manual) (0-0.1) 10^3/uL Differential Comment RBC Morph Micro Appear (NORMAL) PT (9.9-12.6) secs INR (0.8-1.2) Anti-Xa Level ( - 0.7) U/mL Sodium (135-145) mmol/L Potassium 5.6 H (3.5-5.0) mmol/L Chloride (101-111) mmol/L Carbon Dioxide (21-32) mmol/L Anion Gap (6-13) BUN (6-20) mg/dL Creatinine (0.6-1.2) mg/dL Estimated GFR (MDRD) (>89) Glucose (70-100) mg/dL Lactic Acid 0.8 (0.5-2.2) mmol/L Calcium (8.5-10.3) mg/dL Phosphorus (2.5-4.6) mg/dL Total Bilirubin (0.2-1.0) mg/dL Direct Bilirubin (0.1-0.5) mg/dL AST (10-42) IU/L ALT (10-60) IU/L Alkaline Phosphatase (42-121) IU/L Troponin I High Sens (2.3-19.7) ng/L B-Natriuretic Peptide (5-100) pg/mL Total Protein (6.7-8.2) g/dL Albumin (3.2-5.5) g/dL Globulin (2.1-4.2) g/dL Assessment/Plan - Problem List (1) Acute hypoxemic respiratory failure Impression: He is on maximum settings using BiPAP, he did not want ventilator support or intubation. We will continue with his present management and Morphine for air hunger. (2) Coma Impression: He is not responsive today. This may be from uremia with very high BUN yesterday and today, or a FILLING TECHNICIAN event. I updated the DPOA about this finding. I called the DPOA Ivelisse today and updated her on his worse status. She indicated she did not want a feeding tube put in and that she would like to have him transitioned over to comfort care. I reached out to the nursing center tutor to ask about visitors since he probably will not survive. There could potentially be 3 visitors, a sister, her son and her . They would have to be vaccinated and put on protective gear. The DPOA was asked to reach all 3 of them and tell them the rules. The DPOA found out that all 3 of them are currently in quarantine and suffering from Covid. There will be no visitors therefore. Comfort measures will be instituted this afternoon. He will be moved out of the ICU. (3) Pneumonia due to COVID-19 virus Impression: NG tube was attempted to be inserted and a post insertion chest x-ray twice showed it was coiled and not in the stomach. The chest x-ray also reported continued bilateral infiltrates. The patient does not want intubation on a ventilator. He is getting remdesivir and Decadron and empiric steroids. He is more somnolent today, possibly because of worsening uremia. (4) Acute on chronic kidney failure Impression: Over the last 2 to 3 days he has had marked worsening of his renal function, with oliguria despite increasing IV fluids with maintenance drip and fluid iv boluses. He has a creatinine as high as 5 today, which also caused hyperkalemia. Insulin and D50 were given this morning for treatment of the hyperkalemia. Because of the comfort measures status as described above in #2, he will no longer get blood draws, blood pressure checks, will stop the remdesivir, Decadron and empiric IV antibiotics and fluid hydration, no NG tube feedings will therefore be planned. (5) Elevated troponin Impression: He had an Echo showing LVEF of 40-45%. He then has had a further increase in troponin, following his several hours of hypotension yesterday. No transfer for intervention was desired, He had been unable to injest his daily aspirin and Coumadin and therefore Heparin iv drip was started yesterday. The Heparin drip will be stopped. (6) History of transcatheter aortic valve replacement (TAVR) Impression: As per Hx, was functioning normally on echo done this admission. (7) Antiphospholipid syndrome Impression: As per Hx, and he was on Coumadin. (8) History of stroke with residual deficit Impression: He has had bilateral strokes per [facility] summary from Sanya Leblanc. (9) HTN (hypertension), benign Impression: BP has been soft here, and hypotensive yesterday. (10) ROLANDO (renal artery stenosis) Impression: As per Hx in [facility] summary. This also added to the worsening ERMA. (11) Dissection of left subclavian artery Impression: As per Hx, it was repaired several mos ago and Coumadin was advised. (12) Hx of deep venous thrombosis Impression: as per Hx (13) Vocal cord paralysis Impression: Asx per Hx
[2020-10-06] MEDS: MORPHINE 2 MG/ML CARPUJECT IVP PRN (17:54)
[2020-10-06] MEDS: SODIUM CHLORIDE FLUSH 0.9% 10 ML SYRINGE IVP PRN (17:56)
[2020-10-06] MEDS ORDERED: MINERAL OIL/PETROLAT OPHTH OINT EACHEYE PRN (18:47)
--- NOTE | 2020-10-06 19:37 | DISCHARGE SUMMARY ---
Discharge Summary Admit Date: 10/03/20 Discharge Date: 10/06/20 Discharge Disposition: 20 - HPI History of Present Illness: From the admission H&P of Dr Rosy Jiménez: He is a 65-year-old white male whose past medical history is that of TIAs and strokes, hypertension, angina with an NH, and a TAVR that presents with cough, shortness of breath. His entire household has Covid pneumonia. He still smokes. He has been sick for close to a week with chills, malaise, lack of appetite. A mild dry cough. Shortness of breath. He has not been immunized. In the EMS ambulance, his O2 sats were 30% on room air on the way here. Once here we realized that his hands and feet are very, very cold. Once you put an O2 sat monitor on his forehead or earlobe his O2 sats are more in the 80s. He was seen in the emergency room with a temperature of 37.5. Heart rate 114. Respiration 22. Blood pressure 135/79. O2 sat on room air was 88%. He was a confused male who was able to follow commands but had garbled speech. No meningeal findings. A regular rate and rhythm that was tachycardic. He was tachypneic, had diffusely diminished breath sounds. No clubbing cyanosis or edema. BUN was 32, creatinine 2.2. White cell count 5.8. Hemoglobin 11.3. INR 1.5. Troponin is 174, BNP 610. He Dr. Angela was able to make contact with Paramjit and then his power of transactional attorney Ivelisse. The patient and Ivelisse states that he does not want intubation for a ny length of time, and he does not want any further invasive procedures. If he is having a heart attack, then we should treat that here as much as we can and keep him comfortable. [facility]. As such the patient is now admitted for Covid pneumonia and acute respiratory failure. - HOSPITAL COURSE Hospital Course: (1) Acute hypoxemic respiratory failure He was admitted to the ICU. He needed maximum settings using BiPAP, he did not want ventilator support or intubation. (2) Coma He became more lethargic throughout the admission, then was not responsive as the ERMA worsened. The Hospitalist updated the ONDINA Oviedo about his worse status. She indicated she did not want a feeding tube put in and that she would like to have him transitioned over to comfort care. Comfort measures were instituted and he . (3) Pneumonia due to COVID-19 virus He was in the ICU, in respiratory isolation, and was put on Remdesivir and iv Decadron, also empiric iv antibiotics, Mucinex and prn inhalers were ordered. The chest x-ray was repeated showing continued bilateral infiltrates. The patient did not want intubation on a ventilator and DPOA confirmed this and also did not want him transferred to higher level of care. (4) Acute on chronic kidney failure Over his last 3 days, he had marked worsening of his renal function, with oliguria despite increasing IV fluids and fluid iv boluses. He had a creatinine as high as 5, which also caused hyperkalemia. Insulin and D50 were given. Then comfort measures were instituted. (5) Elevated troponin He had elevated troponins, felt to be from demand. An Echo was done showing LVEF of 40-45%. He then had a further increase in troponins, following his several hours of hypotension. No transfer for intervention was desired. (6) History of transcatheter aortic valve replacement (TAVR) As per Hx; the TAVR was functioning normally on Echo done this admission. (7) Antiphospholipid syndrome As per Hx, and he was kept on Coumadin. (8) History of stroke with residual deficit He had had bilateral strokes per [facility] summary from several mos ago, obtained from [facility] Lebl[facility]. (9) HTN (hypertension), benign BP was normal then hypotension started. (10) ROLANDO (renal artery stenosis) As per Hx in [facility] summary. This was likely also contributing to the worsening ERMA. (11) Dissection of left subclavian artery As per Hx from the discharge summary. It was repaired several mos ago and Coumadin was then advised. (12) Hx of deep venous thrombosis As per Hx (13) Vocal cord paralysis As per Hx. - ALLERGIES Allergies/Adverse Reactions: Allergies Allergy/AdvReac Type Severity Reaction Status Date / Time nicotine [From Nicoderm CQ] Allergy Unknown Verified 10/04/20 07:47 pepper (genus Capsicum) Allergy Unknown Verified 10/04/20 07:47 Cnlhhej-[id number]-Dpo Reductase Allergy Unknown Verified 10/03/20 17:30 Inhibitor - MEDICATIONS Home Medications: Ambulatory Orders Medication Instructions Recorded Confirmed Tamsulosin HCl [Flomax] 0.4 mg PO DAILY 03/25/17 10/04/20 Ascorbic Acid [Vitamin C] 250 mg PO DAILY 08/20/20 10/04/20 Losartan Potassium 25 mg PO BID 08/20/20 10/04/20 Magnesium Oxide 420 mg PO DAILY 08/20/20 10/04/20 Senna [Senokot] 1 tab PO BID PRN 08/20/20 10/04/20 Warfarin [Coumadin] 5 mg PO MOWEFR 08/20/20 10/04/20 Warfarin [Coumadin] 7.5 mg PO SUTUTHSA 08/20/20 10/04/20 Acetaminophen [Tylenol] 650 mg PO Q4H PRN 10/04/20 10/04/20 Aspirin EC [Ecotrin] 81 mg PO DAILY 10/04/20 10/04/20 Atorvastatin Calcium [Lipitor] 80 mg PO DAILY 10/04/20 10/04/20 - LABS Result Diagrams: 10/06/20 08:30 10/06/20 08:30
--- NOTE | 2020-10-06 19:38 | Discharge Plan ---
Discharge Plan Problem Reviewed?: Yes Disposition: 20 Condition: Critical No Smoking: If you smoke, Please STOP! Call for help.
== END 2020-10-06 18:55 | disposition expired | DRG 177 ==
LOC: EDUNIT# → ED 17:12 → ICU 17:59
PROVIDERS: ADMIT Specialist; ATTEND Internal Medicine
PROC: XW033E5 Introduction of Remdesivir Anti-infective into Peripheral Vein, Percutaneous Approach, New Technology Group 5 (ICD-10-PCS; principal; 2020-10-04)
DX: U07.1 COVID-19 (principal); J12.82 Pneumonia due to coronavirus disease 2019; J96.01 Acute respiratory failure with hypoxia; R40.20 Unspecified coma; N17.9 Acute kidney failure, unspecified; I24.8 Other forms of acute ischemic heart disease; D68.61 Antiphospholipid syndrome; I69.354 Hemiplegia and hemiparesis following cerebral infarction affecting left non-dominant side; J44.0 Chronic obstructive pulmonary disease with (acute) lower respiratory infection; F17.210 Nicotine dependence, cigarettes, uncomplicated; I12.9 Hypertensive chronic kidney disease with stage 1 through stage 4 chronic kidney disease, or unspecified chronic kidney disease; N18.2 Chronic kidney disease, stage 2 (mild); Z79.01 Long term (current) use of anticoagulants; Z95.2 Presence of prosthetic heart valve; I69.319 Unspecified symptoms and signs involving cognitive functions following cerebral infarction; I70.1 Atherosclerosis of renal artery; Z86.718 Personal history of other venous thrombosis and embolism; J38.00 Paralysis of vocal cords and larynx, unspecified; Z66 Do not resuscitate; N40.0 Benign prostatic hyperplasia without lower urinary tract symptoms; Z95.1 Presence of aortocoronary bypass graft; I25.2 Old myocardial infarction; E86.0 Dehydration
CPT/HCPCS: 0202U; 36415; 71045; 80048; 80053; 80076; 83605; 83735; 83880; 84100; 84132; 84484; 85025; 85027; 85520; 85610; 87150; 93005; 93306; 94660; 96374; 99285; 99291; A9270; C9399; J1650; J1815; 82803